=== PATIENT | female | born 1985 | race Caucasian/White ===

== ENCOUNTER → 2019-04-06 | Outpatient (CLI) | payer OTHER ==
[~2019-04-06] MED LIST: DOCU10CA PO; FERR325T3 PO; IBUP80TA PO; PERCOCET PO; VITAPRTA PO
--- NOTE | 2019-04-06 10:58 | REP ---
LUMBAR SPINE, FIVE VIEWS: HISTORY: Fall. There is no acute fracture or subluxation. The intervertebral discs are normal in height. The facet joints are normal in appearance. There is loss of the normal lordotic curve. There is scoliosis convex to the left. IMPRESSION: There is no acute fracture or dislocation. Electronically Signed by Westley Toscano MD 04/06/2019 11:01 A
[2019-04-06 14:31] LABS: BASO # 0.1 10^3/uL (0.0-0.2); EOS # 0.2 10^3/uL (0.0-0.50); EOS % 3.4 % (0.0-3.0); HEMATOCRIT 42.7 % (36.0-47.0); HEMOGLOBIN 14.1 g/dl (12.0-15.5); LYMPH # 1.9 10^3/uL (1.5-4.5); LYMPH % 31.5 % (24.0-44.0); MEAN CORPUSCULAR VOLUME 93.8 fl (80.0-96.0); MONO # 0.5 10^3/uL (0.0-0.8); MONO % 7.7 % (0.0-5.0); NEUTROPHILS # 3.3 10^3/uL (1.8-7.7); NEUTROPHILS % 56.2 % (36.0-66.0); PLATELET COUNT, AUTOMATED 375 10^3/uL (150-450); RED BLOOD COUNT 4.55 10^6/uL (4.00-5.40); WHITE BLOOD COUNT 5.9 10^3/uL (4.0-10.0)
[2019-04-06 14:34] LABS: AMORPHOUS SEDIMENT SMALL (NEGATIVE); APPEARANCE, URINE HAZY (CLEAR); BACTERIA, URINE AUTO 1+ (NEGATIVE); BILIRUBIN, URINE AUTO NEGATIVE (NEGATIVE); BLOOD, URINE BLOOD 1+ (NEGATIVE); COLOR, URINE YELLOW (YELLOW); GLUCOSE, URINE (UA) AUTO NEGATIVE (NEGATIVE); KETONE, URINE AUTO NEGATIVE (NEGATIVE); LEUKOCYTE ESTERASE, URINE AUTO 1+ (NEGATIVE); MUCUS, URINE SMALL (NEGATIVE); NITRITE, URINE AUTO POSITIVE (NEGATIVE); PROTEIN, URINE AUTO NEGATIVE (NEGATIVE); RBC, URINE AUTO 6 /HPF (0-3); SQUAMOUS EPITHELIAL CELL UR AU 6 /HPF (0-6); UROBILINOGEN, URINE AUTO 0.2 mg/dL (0.0-2.0); WBC, URINE AUTO 30 /HPF (0-3)
[2019-04-06 14:43] LABS: PARTIAL THROMBOPLASTIN TIME 28.9 SECONDS (25.0-38.4); PROTHROMBIN TIME 12.9 SECONDS (11.8-14.0)
[2019-04-06 14:47] LABS: BLOOD UREA NITROGEN 12 MG/DL (7-18); CALCIUM LEVEL 10.2 MG/DL (8.5-10.1); CARBON DIOXIDE LEVEL 26 MEQ/L (21-32); CHLORIDE LEVEL 109 MEQ/L (98-107); CREATININE FOR GFR 0.73 MG/DL (0.55-1.30); GLOMERULAR FILTRATION RATE > 60.0 (>60); GLUCOSE, FASTING 83 MG/DL (70-100); POTASSIUM SERUM 4.3 MEQ/L (3.5-5.1); SODIUM LEVEL 142 MEQ/L (136-145)
[2019-04-06 14:48] LABS: ALBUMIN 3.9 GM/DL (3.2-5.2); ALT/SGPT 19 U/L (12-78); BILIRUBIN,TOTAL 0.6 MG/DL (0.2-1.0); CHOLESTEROL LEVEL 227 MG/DL (<200); CHOLESTEROL RISK RATIO 4.127 (<5); FOLATE 18.7 NG/ML (>5.4); FREE T4 1.01 NG/DL (0.76-1.46); HDL CHOLESTEROL 55 MG/DL (>40); LDL CHOLESTEROL 145 MG/DL (<100); NON-HDL-C 172 MG/DL; TOTAL 25(OH) VITAMIN D 34.6 NG/ML (30.0-100.0); TOTAL PROTEIN 7.5 GM/DL (6.4-8.2); TRIGLYCERIDES LEVEL 136 MG/DL (<150); VITAMIN B12 LEVEL 747 PG/ML (247-911)
--- NOTE | 2019-04-07 02:28 | REP ---
Clinical: Trauma. Technique: Frontal view of the chest with multiple (four) views of the left hemithorax. Findings: Frontal view of the chest demonstrates no acute cardiopulmonary process. Multiple views of the left hemithorax demonstrates no obvious acute rib fracture or pathology. Impression: Normal left rib series Electronically Signed by Jose Lira MD 04/07/2019 02:19 A
--- NOTE | 2019-04-07 02:36 | REP ---
Clinical: Trauma . Technique: AP, lateral, bilateral oblique views of the left elbow. Findings: No acute fracture or dislocation is appreciated. Joint spaces and surrounding soft tissues appear normal. Lateral view demonstrates normal positioning to the anterior and posterior fat pads without evidence for effusion/hemarthrosis. No subcutaneous emphysema or foreign body identified. Impression: Normal left elbow radiographs. Electronically Signed by Jose Lira MD 04/07/2019 02:27 A
--- NOTE | 2019-04-07 02:56 | REP ---
Clinical: Trauma. Fall. Technique: Five views of the bilateral sacroiliac joints. Findings: Bilateral sacroiliac joints are symmetric and age appropriate. No significant degenerative changes or subluxation noted. Surrounding osseous structures appear intact. Impression: Symmetric age-appropriate sacroiliac joints. Electronically Signed by Jose Lira MD 04/07/2019 02:47 A
--- NOTE | 2019-04-07 03:00 | REP ---
Clinical: Trauma. Technique: AP, lateral left humerus Findings: The osseous structures and joint spaces are intact and normal. There is no evidence for acute fracture or dislocation. Surrounding soft tissues are unremarkable. No subcutaneous emphysema or radiodense foreign body. Impression: Normal left humerus . No acute fracture or dislocation. Electronically Signed by Jose Lira MD 04/07/2019 02:52 A
== END ==
LOC: M WUC 09:09
PROVIDERS: ATTEND Family Medicine
DX: J30.9 Allergic rhinitis, unspecified (principal); E55.9 Vitamin D deficiency, unspecified; N30.10 Interstitial cystitis (chronic) without hematuria; K76.9 Liver disease, unspecified; W19.XXXA Unspecified fall, initial encounter; X58.XXXA Exposure to other specified factors, initial encounter; Y92.89 Other specified places as the place of occurrence of the external cause

== ENCOUNTER 2021-08-01 21:15 | Emergency (ER) | payer OTHER ==
[~2021-08-01] VITALS: Ht 167.6 cm; Wt 62.3 kg
--- OUTSIDE RECORDS SUMMARY | 2021-08-01 21:21 | CCD | Continuity of Care Document ---
Author Author Megan HDEZ M.D. Organization Unknown Address [address] [place] [address] Phone [phone] Care Team Providers Care Dope Pourer Name Role Phone Martin Hdez M.D. AUTM [phone] [facility] [phone] [facility] Problems Active Problems Provider Date Vitamin D deficiency Martin Hdez MD Onset: 07/10/2016 Allergic rhinitis Martin Hdez MD Onset: 07/10/2016 Social History Type Date Description Comments Sex Unknown Tobacco Use Start: Unknown Never Smoked Cigarettes Tobacco Use Start: Unknown Never Smoked Cigars Tobacco Use Start: Unknown Never Smoked A Pipe Tobacco Use Start: Unknown Never Used Smokeless Tobacco ETOH Use Occasionally consumes alcohol Tobacco Use Start: Unknown Patient has never smoked Recreational Drug Use Denies Drug Use Allergies and adverse reactions Active Allergies Criticality Reaction | Severity Comments Date Seasonal Unable to assess criticality 07/10/2016 NKFA Unable to assess criticality 07/10/2016 Bactrim Unable to assess criticality 07/10/2016 Latex Unable to assess criticality 04/05/2019 Hemp Unable to assess criticality 05/10/2019 Medications Active Medications SIG Qnty Indications Ordering Provide r Date Flonase Allergy Relief 50mcg/Act Suspension 2 spray intranasal once a day 54.600ml J30.9 Martin holman MD 07/24/2021 Rizatriptan Benzoate 10mg Tablets Dispers 1 tablet by mouth once daily as needed and may repeat one afte 2 hrs if no improvment. Brewster: 3-4/wk 36tabs G43.009 Martin Hdez MD 07/24 Topiramate 50mg Tablets 1tab by mouth every day 90tabs G43.009 Martin Hdez MD 07/24/2021 Multivitamin Adult Tablets 1 by mouth every day 90tabs Martin Hdez MD 08/15/2020 Fexofenadine HCL 180mg Tablets Take 1 tablet by mouth daily 90tabs J30.9 Martin Hdez MD 2019 Olopatadine HCL 0.1% Solution 1 drop both eyes twice a day 15ml J30.9 Martin Hdez MD 04/08/2019 Tri-Sprintec 0.18/0. 215/0.25 mg-35 mcg Tablets 1 tab by mouth every day 168tabs Martin Hdez MD Immunizations Description No Information Available Vital Signs Date Vital Result Comment 07/24/2021 10:14am BP Systolic 112 mmHg BP Diastolic 78 mmHg Heart Rate 66 /min Body Temperature 97.2 F Respiratory Rate 16 /min O2 % BldC Oximetry 98 % Weight 137.38 lb Weight 62.313 kg Height 66 inches 5'6" BMI (Body Mass Index) 22.2 kg/m2 BSA (Body Surface Area) 1.70 m2 08/15/2020 9:59am BP Systolic 120 mmHg BP Diastolic 60 mmHg Heart Rate 84 /min Body Temperature 97.2 F Respiratory Rate 18 /min O2 % BldC Oximetry 99 % Weight 131.00 lb Weight 59.422 kg Height 66 inches 5'6" BMI (Body Mass Index) 21.1 kg/m2 BSA (Body Surface Area) 1.67 m2 Results Test Acquired Date Facility Test Result H/L Range Note Laboratory test finding 07/24/2021 [facility] Sedimentation Rate <pending> CRP (High Sensitivity) <pending> Laboratory test finding [facility] TSH Highly Sensitive <pending> T4 - Free <pending> Laboratory test finding 07/24/2021 [facility] Vitamin B12 Serum <pending> Xray 07/24/2021 [facility] [address] [id number] [phone] MRI Brain W/O Contrast <pending> Procedures Date Code Description Status 07/24/2021 67887 Preventive Visit Est 18-39 Yrs C ompleted Medical Devices Description No Information Available Encounters Type Date Location Provider Dx Diagnosis Office Visit 07/24/2021 10:00a [facility] Martin Hdez MD G4 3.009 Migraine w/o aura, not intractable, w/o status migrainosus J30.9 Allergic rhinitis, unspecifi ed Z00.00 Encntr for general adult med ical exam w/o abnormal findings Assessments Date Code Description Provider 07/24/2021 G43.009 Migraine without aur a, not intractable, without status migrainosus Martin Hdez MD 07/24/2021 J30.9 Allergic rhinitis, unspecified H itzel Hdez MD 07/24/2021 Z00.00 Encounter for genera l adult medical examination without abnormal findings Martin Hdez MD Plan of Treatment Future Appointment(s):* 09/04/2021 10:20 am - Martin Hdez MD at [facility] 07/24/2021 - Martin Hdez MD* G43.009 Migraine without aura, not intractable, without status migrainosus* New Medication:* Rizatriptan Benzoate 10 mg - 1 tablet by mouth once daily as needed and may repeat one afte 2 hrs if no improvment. Brewster: 3-4/wk * Topiramate 50 mg - 1tab by mouth every day * Follow up:* 1 month * J30.9 Allergic rhinitis, unspecified* New Medication:* Flonase Allergy Relief 50 mcg/Act - 2 spray intranasal once a day * Z00.00 Encounter for general adult medical examination without abnormal findings Functional Status Description No Information Available Mental Status Description No Information Available Referrals Description No Information Available
--- OUTSIDE RECORDS SUMMARY | 2021-08-01 21:21 | CCD | Continuity of Care Document ---
Author Author Megan HDEZ M.D. Organization Unknown Address [address] [place] [address] Phone [phone] Care Team Providers Care Registry Np Name Role Phone Martin Hdez M.D. AUTM [phone] [facility] AUTM [phone] [facility] AUTM Problems Active Problems Provider Date Vitamin [...] Date Facility Test Result H/L Range Note CBC W/Automated Diff 07/24/2021 [facility] CBC W/Automated Diff (SEE NOTE) 1, 2 WBC 5.2 10^3/uL 4.2 - 11.0 RBC 4.46 10^6/uL 4.20 - 5.40 Hemoglobin 13.4 g/dL 12.0 - 16.0 Hematocrit 40.1 % 37.0 - 47.0 MCV 89.9 fL 81.0 - 101 MCH 30.0 pg 27.0 - 34.0 MCHC 33.4 g/dL 31.0 - 36.0 RDW 12.8 % 11.5 - 14.5 Platelets 365 10^3/uL 150 - 450 MPV 9.4 fL 7.4 - 10.4 Neut 55.8 % 37.0 - 80.0 Lymph 32.6 % 25.0 - 40.0 [place] 8.3 % High 3.0 - 8.0 Eos 2.1 % 0.0 - 7.0 Baso 1.0 % 0.0 - 2.5 %Ig 0.2 % High 0.0 - 0.0 %NRBC 0.0 % 0.0 - 0.0 #Neut 2.91 10^3/uL 2.00 - 6.90 #Lymph 1.70 10^3/uL 0.60 - 3.40 #[place] 0.43 10^3/uL 0.00 - 0.90 #Eos 0.11 10^3/uL 0.00 - 0.70 #Baso 0.05 10^3/uL 0.00 - 0.20 #Ig 0.01 10^3/uL 0.00 - 0.10 #NRBC 0.00 10^3/uL 0.00 - 0.00 Manual Diff NOT INDICATED RBC Morph NOT INDICATED Comprehensive Metabolic Panel 07/24/2021 [facility] Comprehensive Metabo (SEE NOTE) 3 Sodium 139 mEq/L 134 - 153 Potassium 4.7 mEq/L 3.6 - 5.0 Chloride 104 mEq/L 98 - 107 Co2 26 mEq/L 22 - 30 Glucose 84 mg/dL 70 - 99 BUN 10 mg/dL 7 - 21 Creatinine 0.6 mg/dL Low 0.7 - 1.5 BUN/Creat 17 8 - 27 Total Protein 7.5 g/dL 6.3 - 8.2 Albumin 4.8 g/dL 3.9 - 5.0 Globulin 2.7 GM/DL 2.4 - 3.2 A/G Ratio 1.8 0.8 - 2.0 Calcium 10.6 mg/dL High 8.4 - 10.2 Total Bili 0.9 mg/dL 0.2 - 1.3 Alkaline Phos 45 U/L 38 - 126 Sgot/Ast 14 U/L 5 - 40 SGPT/Alt 12 U/L 7 - 56 Anion Gap 9.0 mmol/L 8.0 - 16.0 Age 36 yrs Non-Aa GFR >60 mL/min Afr Amer GFR >60 mL/min 4 Sedimentation Rate 07/24/2021 [facility] Sed Rate 7 mm/hr 0 - 20 Sed Rate Reenter 7 Laboratory test finding 07/24/2021 [facility] CRP (High Sensitivity) 3.30 mg/L High 1.00 - 3.00 5 Lyme Disease Antibodies 07/24/2021 [facility] Lyme IgG/IgM Ab <0.91 ISR 0.00-0.90 6 Lyme Disease Ab, Quant,IgM <0.80 index 0.00-0.79 7 Laboratory test finding 07/24/2021 [facility] TSH Highly Sensitive 2.17 uIU/mL 0.47 - 5.01 T4 - Free 1.14 ng/dL 0.93 - 1.70 Laboratory test finding 07/24/2021 [facility] Vitamin B12 Serum 694 pg/mL 232 - 1245 Cve Panel 07/24/2021 [facility] Cve Panel (SEE NOTE) 8 Cholesterol 230 mg/dL High 131 - 200 Triglycerides 106 mg/dL 35 - 160 HDL 66 mg/dL 29 - 86 LDL 145 mg/dL 65 - 175 Risk Factor 3.5 3.2 - 4.4 LDL/HDL 2.20 1.47 - 3.22 9 Xray 07/24/2021 [facility] [address] [place], [place] [id number] [phone] MRI Brain W/O Contrast <pending> 1 Is patient fasting? N 2 COMPLETE BLOOD COUNT 3 COMPREHENSIVE METABOLIC PANE L 4 Male GFR Interprentation 20-49 yrs >60 mL/min Normal 50-59 yrs >56 mL/min Normal 60-69 yrs >49 mL/min Normal 70-79yrs >42 mL/min Normal 80 and above >35 mL/min Normal Female GFR Interpretation 20-39 yrs >60 mL/min Normal 40-49 yrs >58 mL/min Normal 50-59 yrs >51 mL/min Normal 60-69 yrs >45 mL/min Normal 70-79 yrs >39 mL/min Normal 80 and above >32 mL/min Normal 5 CDC/AHS HS-CRP CUT-OFF: RELATIVE RISK: <1.0 mg/L Low 1.0 - 3.0 mg/L A verage >3.0 mg/L High Optimally, the average of HS-CRP results repeated two weeks apart should be used for risk assessment. 6 Negative <0.91 Equivocal 0.91 - 1.09 Positive >1.09 7 Negative <0.80 Equivocal 0.80 - 1.19 Positive >1.19 IgM levels may peak at 3-6 weeks post infection, then gradually decline. 8 LIPID PANEL 9 CVE RISK CHOL/HDL LDL/HDL MEN: 1/2 AVERAGE 3.43 1.00 AVERAGE 4.97 3.55 2X AVERAGE 9.55 6.25 3X AVERAGE 23.99 7.99 WOMEN: 1/2 AVERAGE 3.27 1.47 AVERAGE 4.44 3.22 2X AVERAGE 7.05 5.03 3X AVERAGE 11.04 6.14 Procedures Date Code Description Status 07/24/2021 69178 Preventive Visit Est 18-39 Yrs C ompleted Medical Devices Description No Information Available Encounters Type Date Location Provider Dx Diagnosis Office Visit 07/24/2021 10:00a [facility] Martin Hdez MD G4 3.009 Migraine w/o [...] 10:20 am - Martin Hdez MD at [facility] 07/24/2021 - Martin Hdez MD* G43.009 Migraine without aura, not intractable, without status migrainosus* New Medication:* Rizatriptan Benzoate 10 mg - 1 tablet by mouth once daily as needed and may repeat one afte 2 hrs if no improvment. Brewster: 3-4/wk * Topiramate 50 mg - 1tab by mouth every day * Comments:* Prescribed Rizatriptan Benzoate 10 mg 1 tablet by mouth once daily as needed. * Follow up:* 1 month * J30.9 Allergic rhinitis, unspecified* New Medication:* Flonase Allergy Relief 50 mcg/Act - 2 spray intranasal once a day * Comments:* Prescribed Flonase 2 sprays once daily. * Z00.00 Encounter for general adult medical examination without abnormal findings* Comments:* Examination performed today was normal. Routine labs were ordered today. Functional Status Description No Information Available Mental Status Description No Information Available Referrals Description No Information Available
--- OUTSIDE RECORDS SUMMARY | 2021-08-01 21:21 | CCD ---
Author Author [facility] Organization [facility] Address Unknown Phone Unavailable Care Team Providers Care Stage Rigger Name Role Phone MARIBELL KLINE MD Unavailable Unavailable MARIBELL KLINE MD Unavailable Unavailable MARIBELL KLINE MD Unavailable Unavailable MARIBELL KLINE MD Unavailable Unavailable MARIBELL KLINE MD Unavailable Unavailable MARIBELL KLINE MD Unavailable Unavailable MARIBELL KLINE MD Unavailable Unavailable MARIBELL KLINE MD Unavailable Unavailable MARIBELL KLINE MD Unavailable Unavailable MARIBELL KLINE MD Unavailable Unavailable MARIBELL KLINE MD Unavailable Unavailable MARIBELL KLINE MD Unavailable Unavailable MARIBELL KLINE MD Unavailable Unavailable MARIBELL KLINE MD Unavailable Unavailable MARIBELL KLINE MD Unavailable Unavailable MARIBELL KLINE MD Unavailable Unavailable MARIBELL KLINE MD Unavailable Unavailable MARIBELL KLINE MD Unavailable Unavailable MARIBELL KLINE MD Unavailable Unavailable MARIBELL KLINE MD Unavailable Unavailable MARIBELL KLINE MD Unavailable Unavailable MARIBELL KLINE MD Unavailable Unavailable MARIBELL KLINE MD Unavailable Unavailable MARIBELL KLINE MD Unavailable Unavailable MARIBELL KLINE MD Unavailable Unavailable MARIBELL KLINE MD Unavailable Unavailable MARIBELL KLINE MD Unavailable Unavailable MARIBELL KLINE MD Unavailable Unavailable MARIBELL KLINE MD Unavailable Unavailable MARIBELL KLINE MD Unavailable Unavailable MARIBELL KLINE MD Unavailable Unavailable MARIBELL KLINE MD Unavailable Unavailable MARIBELL KLINE MD Unavailable Unavailable MARIBELL KLINE MD Unavailable Unavailable MARIBELL KLINE MD Unavailable Unavailable MARIBELL KLINE MD Unavailable Unavailable MARIBELL KLINE MD Unavailable Unavailable MARIBELL KLINE MD Unavailable Unavailable MARIBELL KLINE MD Unavailable Unavailable KLINE, MARIBELL MD Unavailable Unavailable KLINE, MARIBELL MD Unavailable Unavailable KLINE, MARIBELL MD Unavailable Unavailable KLINE, MARIBELL MD Unavailable Unavailable KLINE, MARIBELL MD Unavailable Unavailable KLINE, MARIBELL MD Unavailable Unavailable KLINE, MARIBELL MD Unavailable Unavailable KLINE, MARIBELL MD Unavailable Unavailable KLINE, MARIBELL MD Unavailable Unavailable KLINE, MARIBELL MD Unavailable Unavailable KLINE, MARIBELL MD Unavailable Unavailable KLINE, MARIBELL MD Unavailable Unavailable KLINE, MARIBELL MD Unavailable Unavailable KLINE, MARIBELL MD Unavailable Unavailable KLINE, MARIBELL MD Unavailable Unavailable KLINE, MARIBELL MD Unavailable Unavailable KLINE, MARIBELL MD Unavailable Unavailable KLINE, MARIBELL MD Unavailable Unavailable KLINE, MARIBELL MD Unavailable Unavailable KLINE, MARIBELL MD Unavailable Unavailable KLINE, MARIBELL MD Unavailable Unavailable KLINE, MARIBELL MD Unavailable Unavailable KLINE, MARIBELL MD Unavailable Unavailable KLINE, MARIBELL MD Unavailable Unavailable KLINE, MARIBELL MD Unavailable Unavailable KLINE, MARIBELL MD Unavailable Unavailable KLINE, MARIBELL MD Unavailable Unavailable KLINE, MARIBELL MD Unavailable Unavailable KLINE, MARIBELL MD Unavailable Unavailable KLINE, MARIBELL MD Unavailable Unavailable KLINE, MARIBELL MD Unavailable Unavailable KLINE, MARIBELL MD Unavailable Unavailable KLINE, MARIBELL MD Unavailable Unavailable KLINE, MARIBELL MD Unavailable Unavailable KLINE, MARIBELL MD Unavailable Unavailable KLINE, MARIBELL MD Unavailable Unavailable KLINE, MARIBELL MD Unavailable Unavailable KLINE, MARIBELL MD Unavailable Unavailable KLINE, MARIBELL MD Unavailable Unavailable KLINE, MARIBELL MD Unavailable Unavailable KLINE, MARIBELL MD Unavailable Unavailable KLINE, MARIBELL MD Unavailable Unavailable KLINE, MARIBELL MD Unavailable Unavailable KLINE, MARIBELL MD Unavailable Unavailable KLINE, MARIBELL MD Unavailable Unavailable KLINE, MAIRBELL MD Unavailable Unavailable KLINE, MARIBELL MD Unavailable Unavailable KLINE, MARIBELL MD Unavailable Unavailable KLINE, MARIBELL MD Unavailable Unavailable KLINE, MARIBELL MD Unavailable Unavailable KLINE, MARIBELL MD Unavailable Unavailable KLINE, MARIBELL MD Unavailable Unavailable KLINE, MARIBELL MD Unavailable Unavailable KLINE, MARIBELL MD Unavailable Unavailable KLINE, MARIBELL MD Unavailable Unavailable KLINE, MARIBELL MD Unavailable Unavailable KLINE, MARIBELL MD Unavailable Unavailable KLINE, MARIBELL MD Unavailable Unavailable KLINE, MARIBELL MD Unavailable Unavailable KLINE, MARIBELL MD Unavailable Unavailable KLINE, MARIBELL MD Unavailable Unavailable KLINE, MARIBELL MD Unavailable Unavailable KLINE, MARIBELL MD Unavailable Unavailable KLINE, MARIBELL MD Unavailable Unavailable KLINEMARIBELL MD Unavailable Unavailable KLINEMARIBELL MD Unavailable Unavailable KLINEMARIBELL MD Unavailable Unavailable KLINEMARIBELL MD Unavailable Unavailable KLINEMARIBELL MD Unavailable Unavailable KLINEMARIBELL MD Unavailable Unavailable KLINEMARIBELL MD Unavailable Unavailable KLINEMARIBELL MD Unavailable Unavailable KLINEMARIBELL MD Unavailable Unavailable KLINEMARIBELL MD Unavailable Unavailable KLINEMARIBELL MD Unavailable Unavailable KLINEMARIBELL MD Unavailable Unavailable KLINE MARIBELL MD Unavailable Unavailable KLINE MARIBELL MD Unavailable Unavailable KLINE, MARIBELL MD Unavailable Unavailable KLINE, MARIBELL MD Unavailable Unavailable LKINEMARIBELL MD Unavailable Unavailable KLINEMARIBELL MD Unavailable Unavailable KLINEMARIBELL MD Unavailable Unavailable KLINEMARIBELL MD Unavailable Unavailable KLINEMARIBELL MD Unavailable Unavailable KLINEMARIBELL MD Unavailable Unavailable KLINEMARIBELL MD Unavailable Unavailable KLINEMARIBELL BARRETT MD Unavailable Unavailable KLINEMARIBELL BARRETT MD Unavailable Unavailable KLINEMARIBELL BARRETT MD Unavailable Unavailable KLINEMARIBELL BARRETT MD Unavailable Unavailable KLINEMARIBELL MD Unavailable Unavailable KLINEMARIBELL MD Unavailable Unavailable KLINEMARIBELL MD Unavailable Unavailable KLINEMARIBELL MD Unavailable Unavailable KLINEMARIBELL BARRETT MD Unavailable Unavailable KLINEMARIBELL BARRETT MD Unavailable Unavailable KLINEMARIBELL BARRETT MD Unavailable Unavailable KLINEMARIBELL BARRETT MD Unavailable Unavailable KLINEMARIBELL BARRETT MD Unavailable Unavailable KLINEMARIBELL BARRETT MD Unavailable Unavailable KLINEMARIBELL BARRETT MD Unavailable Unavailable KLINEMARIBELL BARRETT MD Unavailable Unavailable ANTECOL, Peyton RIDLEY MD Unavailable Unavailable ANTECOL, Peyton RIDLEY MD Unavailable Unavailable ANTECOL, Peyton RIDLEY MD Unavailable Unavailable ANTECOL, Peyton RIDLEY MD Unavailable Unavailable ANTECOL, Peyton RIDLEY MD Unavailable Unavailable ANTECOL, Peyton RIDLEY MD Unavailable Unavailable ANTECOL, Peyton RIDLEY MD Unavailable Unavailable ANTECOL, Peyton RIDLEY MD Unavailable Unavailable ANTECOL, Peyton RIDLEY MD Unavailable Unavailable ANTECOL, Peyton RIDLEY MD Unavailable Unavailable ANTECOL, Peyton RIDLEY MD Unavailable Unavailable ANTECOL, Peyton RIDLEY MD Unavailable Unavailable ANTECOL, Peyton RIDLEY MD Unavailable Unavailable ANTECOL, Peyton RIDLEY MD Unavailable Unavailable ANTECOL, Peyton RIDLEY MD Unavailable Unavailable ANTECOL, Peyton RIDLEY MD Unavailable Unavailable ANTECOL, Peyton RIDLEY MD Unavailable Unavailable ANTECOL, Peyton RIDLEY MD Unavailable Unavailable ANTECOL, Peyton RIDLEY MD Unavailable Unavailable ANTECOL, Peyton RIDLEY MD Unavailable Unavailable ANTECOL, Peyton RIDLEY MD Unavailable Unavailable ANTECOL, Peyton RIDLEY MD Unavailable Unavailable ANTECOL, Peyton RIDLEY MD Unavailable Unavailable ANTECOL, Peyton RIDLEY MD Unavailable Unavailable ANTECOL, Peyton RIDLEY MD Unavailable Unavailable ANTECOL, Peyton RIDLEY MD Unavailable Unavailable ANTECOL, Peyton RIDLEY MD Unavailable Unavailable ANTECOL, Peyton RIDLEY MD Unavailable Unavailable ANTECOL, Peyton RIDLEY MD Unavailable Unavailable ANTECOL, Peyton RIDLEY MD Unavailable Unavailable ANTECOL, Peyton RIDLEY MD Unavailable Unavailable ANTECOL, Peyton RIDLEY MD Unavailable Unavailable ANTECOL, Peyton RIDLEY MD Unavailable Unavailable ANTECOL, Peyton RIDLEY MD Unavailable Unavailable ANTECOL, Peyton RIDLEY MD Unavailable Unavailable ANTECOL, Peyton RIDLEY MD Unavailable Unavailable ANTECOL, Peyton RIDLEY MD Unavailable Unavailable ANTECOL, Peyton RIDLEY MD Unavailable Unavailable ANTECOL, Peyton RIDLEY MD Unavailable Unavailable ANTECOL, Peyton RIDLEY MD Unavailable Unavailable ANTECOL, Peyton RIDLEY MD Unavailable Unavailable ANTECOL, Peyton RIDLEY MD Unavailable Unavailable ANTECOL, Peyton RIDLEY MD Unavailable Unavailable ANTECOL, Peyton RIDLEY MD Unavailable Unavailable ANTECOL, Peyton RIDLEY MD Unavailable Unavailable ANTECOL, Peyton RIDLEY MD Unavailable Unavailable ANTECOL, Peyton RIDLEY MD Unavailable Unavailable ANTECOL, Peyton RIDLEY MD Unavailable Unavailable ANTECOL, Peyton RIDLEY MD Unavailable Unavailable ANTECOL, Peyton RIDLEY MD Unavailable Unavailable ANTECOL, Peyton RIDLEY MD Unavailable Unavailable ANTECOL, Peyton RIDLEY MD Unavailable Unavailable ANTECOL, Peyton RIDLEY MD Unavailable Unavailable ANTECOL, Peyton RIDLEY MD Unavailable Unavailable Re-disclosure Warning The records that you are about to access may contain information from federally-assisted alcohol or drug abuse programs. If such information is present, then the following federally mandated warning applies: This information has been disclosed to you from records protected by federal confidentiality rules (42 CFR part 2). The federal rules prohibit you from making any further disclosure of this information unless further disclosure is expressly permitted by the written consent of the person to whom it pertains or as otherwise permitted by 42 CFR part 2. A general authorization for the release of medical or other information is NOT sufficient for this purpose. The Federal rules restrict any use of the information to criminally investigate or prosecute any alcohol or drug abuse patient.The records that you are about to access may contain highly sensitive health information, the redisclosure of which is protected by Article 27-F of the [facility] Public Health law. If you continue you may have access to information: Regarding HIV / AIDS; Provided by facilities licensed or operated by the [facility] Office of Mental Health; or Provided by the [facility] Office for People With Developmental Disabilities. If such information is present, then the following [place] State mandated warning applies: This information has been disclosed to you from confidential records which are protected by state law. State law prohibits you from making any further disclosure of this information without the specific written consent of the person to whom it pertains, or as otherwise permitted by law. Any unauthorized further disclosure in violation of state law may result in a fine or [place] health care facility sentence or both. A general authorization for the release of medical or other information is NOT sufficient authorization for further disc losure. Allergies and Adverse Reactions Type Description Substance Reaction Status Data Source(s ) Propensity to adverse reactions seasonal seasonal [facility] Propensity to adverse [facility] History Family Member Name Family Member Gender Family Member Status Date o f Status Description Data Source(s) Unknown Unknown Problem [facility] ([facility]) Unknown Unknown Problem [facility] ([facility]) Encounters Encounter Providers Location Date Indications Data Source(s ) Outpatient Attender: MARIBELL KLINE MDConsultant: MARIBELL Singh MD 07/24/2021 11:08:27 AM [facility] Outpatient Attender: MARIBELL KLINE MDConsultant: MARIBELL Singh MD 07/24/2021 09:56:00 AM EST - 07/24/2021 09:56:00 AM [facility] Outpatient Attender: MARIBELL KLINE MD Family Practice 07/24/2021 0 9:00:00 AM EST [facility] ([facility]) Outpatient Attender: KEYANA MACIEL MD Main Office 10/09/2020 11:30:00 AM EST [facility] ([facility]) Outpatient Attender: MAIRBELL KLINE MDConsultant: MARIBELL Singh MD 09/13/2020 10:39:00 AM EST - 09/13/2020 10:39:00 AM [facility] Outpatient Attender: MARIBELL KLINE MDConsultant: MARIBELL Singh MD 09/07/2020 10:44:00 AM EST - 09/07/2020 11:44:00 AM [facility] Patient discharged. Outpatient Attender: MARIBELL KLINE MDConsultant: MARIBELL Singh MD 08/15/2020 09:57:00 AM EST - 08/15/2020 09:57:00 AM EST [facility] Outpatient Attender: MARIBELL KLINE MD Family Practice 08/15/2020 0 9:20:00 AM EST [facility] ([facility]) Immunizations Vaccine Date Status Description Data Source(s) COVID-19 VACCINE Pfizer 07/07/2021 12:00:00 AM EDT completed [facility] Vaccine Series Complete: YESThis Data wa s Submitted to [facility] Via Identiv. COVID-19 VACC, MRNA(PFIZER)/PF 07/07/2021 12:00:00 AM EDT completed [facility] DIPH,PERTUSS(ACELL),TET VAC/PF 06/23/2021 12:00:00 AM EDT completed [facility] COVID-19 VACCINE Pfizer 12/04/2020 12:00:00 AM EDT completed [facility] Vaccine Series Complete: NOThis Data was Submitted to [facility] Via Identiv. Medications Medication Brand Name Start Date Product Form Dose Route Admi nistrative Instructions Pharmacy Instructions Status Indications Reaction Description Data Source(s) Flonase Allergy Relief Flonase Allergy Relief 07/24/2021 12:00:00 AM EST NASAL active [facility] ([facility]) topiramate 50 MG Oral Tablet Topiramate 07/24/2021 12:00:00 AM EST ORAL active [facility] ([facility]) rizatriptan 10 MG Disintegrating Oral Tablet Rizatriptan Willem zoate 07/24/2021 12:00:00 AM EST ORAL active M [facility] ([facility]) 60 mcg (15 mcg x 4)/0.5 mL 06/23/2021 12:00:00 AM EDT syring e 0 INJECT DIRECTED INJECT DIRECTED SOLD: 06/23/2021 [facility] Tri-Sprintec Tri-Sprintec 10/08/2020 12:00:00 AM EST ORAL active [facility] ([facility]) Ascorbic Acid 60 MG / Beta Carotene 5000 UNT / Copper Sulfate 40 MG / dl-alpha tocopheryl acetate 30 UNT / Sodium Selenite 0.04 MG / Zinc Oxide 40 MG Oral Tablet Multivitamin Adult (Minerals) 08/15/2020 12:00:00 AM EST ORAL active [facility] ([facility]) Multivitamin Adult 08/15/2020 12:00:00 AM EST ORAL active [facility] ([facility]) Insurance Providers Payer name Policy type / Coverage type Policy ID Covered republican ID Covered republican's relationship to pearce Policy Pearce Plan Information [facility] [id number] SP [id number] [facility] [place] [id number] 18 [id number] [employer] AT [facility] [id number] 18 [id number] [employer] AT [facility] [place] [id number] 18 [id number] [facility] O [id number] S 0001 [id number] [facility] Commercial [id number] Self [id number] [facility] [id number] Self [employer] AT [facility] [id number] 18 [id number] Problems, Conditions, and Diagnoses Code Display Name Description Problem Type Effective Dates Data Source(s) J309 Allergic rhinitis, unspecified Allergic rhinitis, unsp ecified Diagnosis 07/24/2021 09:56:00 AM [facility] [id number] Migraine without aura, not intractable, without status migrainosus Migraine without aura, not intractable, without status migrainosus Diagnosis 07/24/2021 09:56:00 AM [facility] Z0001 Encounter for general adult medical exam ination with abnormal findings Encounter for general adult medical examination with abnormal findings Diagnosis 07/24/2021 09:56:00 AM [facility] K829 Disease of gallbladder, unspecified Disease of g allbladder, unspecified Diagnosis 09/13/2020 10:39:00 AM [facility] K7689 Other specified diseases of liver Other specifie d diseases of liver Diagnosis 09/13/2020 10:39:00 AM [facility] E559 Vitamin D deficiency, unspecified Vitamin D defi ciency, unspecified Diagnosis 09/13/2020 10:39:00 AM [facility] K769 Liver disease, unspecified Liver disease, unspecified Diagnosis 09/07/2020 10:44:00 AM [facility] R55 Syncope and collapse Syncope and collapse Diagnosis 08/15/2020 09:57:00 AM EST [facility] Z0000 Encounter for general adult medical exam ination without abnormal findings Encounter for general adult medical examination without abnormal findings Diagnosis 08/15/2020 09:57:00 AM EST [facility] R07.89 Chest pain Chest pain Problem 10/09/2020 12:00:00 AM ES T [facility] ([facility]) R00.2 Palpitations Palpitations Problem 10/09/2020 12:00:00 A M EST [facility] ([facility]) R94.31 Electrocardiogram abnormal Electrocardiogram abnormal Problem 10/09/2020 12:00:00 AM EST [facility] ([facility]) 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 Conduction disorder o f the heart Problem 10/09/2020 12:00:00 AM EST [facility] ([facility]) R55 Syncope and collapse Syncope and collapse Problem 10/09/2020 12:00:00 AM EST [facility] ([facility]) Surgeries/Procedures Procedure Description Date Indications Data Source(s) PERIODIC PREVENTIVE MED EST PATIENT 18-39 YRS 07/24/20 21 12:00:00 AM EST [facility] ([facility]) XTRNL PT ACTIVATED ECG RECORD MONITOR 30 DAYS 10/31/19 21 12:00:00 AM EST [facility] ([facility]) XTRNL PT ACTIVTD ECG DWNLD 30 DAYS PHYS R&I 10/30/2020 12:00:00 AM EST [facility] ([facility]) ECHO TTHRC R-T 2D W/WOM-MODE COMPL SPEC&COLR DOP 10/10 12:00:00 AM EST [facility] ([facility]) ECG ROUTINE ECG W/LEAST 12 LDS W/I&R 10/09/2020 12:00: 00 AM EST [facility] ([facility]) Brief Emotional/Behav Assessment W/ Scoring Doc Per Standard Inst 08/15/2020 12:00:00 AM EST [facility] ([facility]) Results ID Date Data Source [id number] 07/24/2021 10:51:00 AM EST [facility] ([facility]) Name Value Range Interpretation Code Description Data Talisha rce(s) Supporting Document(s) MRI Brain W/O Contrast Laboratory test result [facility] ([facility]) ID Date Data Source [id number] 07/24/2021 10:50:00 AM EST [facility] ([facility]) Name Value Range Interpretation Code Description Data Talisha rce(s) Supporting Document(s) Cve Panel Laboratory test result [facility] ([facility]) Is patient fasting? N Triglycerides 106 mg/dL 35-160 [facility] ([facility]) Is patient fasting? N Cholesterol 230 mg/dL 131-200 Above high normal [facility] ([facility]) Is patient fasting? N Risk Factor 3.5 3.2-4.4 [facility] ([facility]) Is patient fasting? N LDL 145 mg/dL 65-175 [facility] ([facility]) Is patient fasting? N HDL 66 mg/dL 29-86 [facility] ([facility]) Is patient fasting? N LDL/HDL 2.20 1.47-3.22 [facility] ([facility]) Is patient fasting? N ID Date Data Source [id number] 07/24/2021 10:50:00 AM EST [facility] ([facility]) Name Value Range Interpretation Code Description Data Talisha rce(s) Supporting Document(s) Cobalamin (Vitamin B12) [Mass/volume] in Serum or Plasma 694 pg/mL 2 32-1245 [facility] ([facility]) Is patient fasting? N ID Date Data Source [id number] 07/24/2021 10:50:00 AM EST [facility] ([facility]) Name Value Range Interpretation Code Description Data Talisha rce(s) Supporting Document(s) Thyrotropin [Units/volume] in Serum or Plasma 2.17 uIU/mL 0.47-5.01 [facility] ([facility]) Is patient fasting? N Thyroxine (T4) free [Mass/volume] in Serum or Plasma 1.14 ng/dL 0.93- 1.70 [facility] ([facility]) Is patient fasting? N ID Date Data Source [id number] 07/24/2021 10:50:00 AM EST [facility] ([facility]) Name Value Range Interpretation Code Description Data Talisha rce(s) Supporting Document(s) Lyme IgG/IgM Ab Laboratory test result 0.00-0.90 [facility] ([facility]) Is patient fasting? N Lyme Disease Ab, Quant,IgM Laboratory test result 0.00-0.79 [facility] ([facility]) Is patient fasting? N ID Date Data Source [id number] 07/24/2021 10:50:00 AM EST [facility] ([facility]) Name Value Range Interpretation Code Description Data Talisha rce(s) Supporting Document(s) C reactive protein [Mass/volume] in Serum or Plasma by High sensitivity method 3.30 mg/L 1.00-3.00 Above high normal [facility] Is patient fasting? N ID Date Data Source [id number] 07/24/2021 10:50:00 AM EST [facility] ([facility]) Name Value Range Interpretation Code Description Data Talisha rce(s) Supporting Document(s) Sed Rate 7 mm/hr 0-20 [facility] ([facility]) Is patient fasting? N Sed Rate Reenter 7 [facility] ([facility]) Is patient fasting? N ID Date Data Source [id number] 07/24/2021 10:50:00 AM EST [facility] ([facility]) Name Value Range Interpretation Code Description Data Talisha rce(s) Supporting Document(s) Comprehensive Metabo Laboratory test result [facility] ([facility]) Is patient fasting? N Potassium 4.7 meq/L 3.6-5.0 [facility] ([facility]) Is patient fasting? N Sodium 139 meq/L 134-153 [facility] ([facility]) Is patient fasting? N Glucose 84 mg/dL 70-99 [facility] ([facility]) Is patient fasting? N Chloride 104 meq/L 98-107 [facility] ([facility]) Is patient fasting? N Co2 26 meq/L 22-30 [facility] ([facility]) Is patient fasting? N Creatinine 0.6 mg/dL 0.7-1.5 Below low normal [facility] ( [facility]) Is patient fasting? N BUN/Creat 17 8-27 [facility] ([facility]) Is patient fasting? N BUN 10 mg/dL 7-21 [facility] Is patient fasting? N Albumin 4.8 g/dL 3.9-5.0 [facility] ([facility]) Is patient fasting? N Total Protein 7.5 g/dL 6.3-8.2 [facility] ([facility]) Is patient fasting? N Globulin 2.7 GM/DL 2.4-3.2 [facility] ([facility]) Is patient fasting? N Calcium 10.6 mg/dL 8.4-10.2 Above high normal [facility] ([facility]) Is patient fasting? N A/G Ratio 1.8 0.8-2.0 [facility] ([facility]) Is patient fasting? N Alkaline Phos 45 U/L 38-126 [facility] ([facility]) Is patient fasting? N Total Bili 0.9 mg/dL 0.2-1.3 [facility] Is patient fasting? N Sgot/Ast 14 U/L 5-40 [facility] Is patient fasting? N Anion Gap 9.0 mmol/L 8.0-16.0 [facility] ([facility]) Is patient fasting? N SGPT/Alt 12 U/L 7-56 [facility] ([facility]) Is patient fasting? N Age 36 yrs [facility] ([facility]) Is patient fasting? N Afr Amer GFR Laboratory test result [facility] ([facility]) Is patient fasting? N Non-Aa GFR Laboratory test result [facility] ([facility]) Is patient fasting? N ID Date Data Source [id number] 07/24/2021 10:50:00 AM EST [facility] ([facility]) Name Value Range Interpretation Code Description Data Talisha rce(s) Supporting Document(s) CBC W/Automated Diff Laboratory test result [facility] ([facility]) Is patient fasting? N RBC 4.46 10^6/uL 4.20-5.40 [facility] ([facility]) Is patient fasting? N WBC 5.2 10^3/uL 4.2-11.0 [facility] ([facility]) Is patient fasting? N MCV 89.9 fL 81.0-101 [facility] ([facility]) Is patient fasting? N Hemoglobin 13.4 g/dL 12.0-16.0 [facility] ([facility]) Is patient fasting? N Hematocrit 40.1 % 37.0-47.0 [facility] ([facility]) Is patient fasting? N MCH 30.0 pg 27.0-34.0 [facility] ([facility]) Is patient fasting? N MCHC 33.4 g/dL 31.0-36.0 [facility] ([facility]) Is patient fasting? N Platelets 365 10^3/uL 150-450 [facility] [facility]) Is patient fasting? N RDW 12.8 % 11.5-14.5 [facility] ([facility]) Is patient fasting? N MPV 9.4 fL 7.4-10.4 [facility] ([facility]) Is patient fasting? N Lymph 32.6 % 25.0-40.0 [facility] ([facility]) Is patient fasting? N Neut 55.8 % 37.0-80.0 [facility] ([facility]) Is patient fasting? N Eos 2.1 % 0.0-7.0 [facility] ([facility]) Is patient fasting? N Lu[place] 8.3 % 3.0-8.0 Above high normal [facility] ([facility]) Is patient fasting? N %Ig 0.2 % 0.0-0.0 Above high normal [facility] ([facility]) Is patient fasting? N Baso 1.0 % 0.0-2.5 [facility] ([facility]) Is patient fasting? N #Lymph 1.70 10^3/uL 0.60-3.40 [facility] ([facility]) Is patient fasting? N #Neut 2.91 10^3/uL 2.00-6.90 [facility] ([facility]) Is patient fasting? N %NRBC 0.0 % 0.0-0.0 [facility] ([facility]) Is patient fasting? N #Eos 0.11 10^3/uL 0.00-0.70 [facility] ([facility]) Is patient fasting? N #Luquillo 0.43 10^3/uL 0.00-0.90 [facility] ([facility]) Is patient fasting? N #Baso 0.05 10^3/uL 0.00-0.20 [facility] ([facility]) Is patient fasting? N #Ig 0.01 10^3/uL 0.00-0.10 [facility] ([facility]) Is patient fasting? N Manual Diff Laboratory test result M [facility] ([facility]) Is patient fasting? N #NRBC 0.00 10^3/uL 0.00-0.00 [facility] ([facility]) Is patient fasting? N RBC Morph Laboratory test result [facility] ([facility]) Is patient fasting? N ID Date Data Source [id number] 07/25/2021 05:25:00 PM EST [facility] Name Value Range Interpretation Code Description Data Talisha rce(s) Supporting Document(s) Borrelia burgdorferi IgG+IgM Ab [Units/volume] in Serum <0.91 ISR 0. 00-0.90 [facility] Negative <0.91 Equivocal 0.91 - 1.09 Positive >1.09 Borrelia burgdorferi IgM Ab [Units/volume] in Serum by Immun oassay <0.80 index 0.00-0.79 [facility] Negative <0.80 Equivocal 0.80 - 1.19 Positive >1.19 IgM levels may peak at 3-6 weeks post infection, then gradually decline. ID Date Data Source [id number] 07/24/2021 01:16:00 PM [facility] Name Value Range Interpretation Code Description Data Talisha rce(s) Supporting Document(s) Cobalamin (Vitamin B12) [Mass/volume] in Serum or Plasma 694 PG/ML 232 - 1245 [facility] ID Date Data Source [id number] 07/24/2021 01:16:00 PM [facility] Name Value Range Interpretation Code Description Data Talisha rce(s) Supporting Document(s) Thyroxine (T4) free index in Serum or Plasma by calculation 1.14 NG/DL 0.93 - 1.70 [facility] ID Date Data Source [id number] 07/24/2021 01:16:00 PM [facility] Name Value Range Interpretation Code Description Data Talisha rce(s) Supporting Document(s) Thyrotropin [Units/volume] in Serum or Plasma by Detec tion limit <= 0.05 mIU/L 2.17 uIU/mL 0.47 - 5.01 [facility] ID Date Data Source [id number] 07/24/2021 01:07:00 PM [facility] Name Value Range Interpretation Code Description Data Talisha rce(s) Supporting Document(s) C reactive protein [Mass/volume] in Serum or Plasma by High sensitivity method 3.30 MG/L 1.00 - 3.00 H [facility] CDC/S HS-CRP CUT-OFF: RELATIVE RISK: <1.0 mg/L Low 1.0 - 3.0 mg/L Average >3.0 mg/L High Optimally, the average of HS-CRP results repeated two weeks apart should be used for risk assessment. ID Date Data Source [id number] 07/24/2021 01:07:00 PM [facility] Name Value Range Interpretation Code Description Data Talisha rce(s) Supporting Document(s) [facility] Cholesterol [Mass/volume] in Serum or Plasma 230 MG/DL 131 - 200 H [facility] Deprecated Triglyceride [Mass/volume] in Serum or Plasma 106 MG/DL 3 5 - 160 [facility] HDL 66 MG/DL 29 - 86 [facility] Cholesterol in LDL [Mass/volume] in Serum or Plasma by Direc t assay 145 mg/dL 65 - 175 [facility] Cholesterol.total/Cholesterol in HDL [Mass Ratio] in Serum o r Plasma 3.5 3.2 - 4.4 [facility] LDL/HDL 2.20 1.47 - 3.22 [facility] CVE RISK CHOL/HDL LDL/HDLMEN: 1/2 AVERAGE 3.43 1.00 AVERAGE 4.97 3.55 2X AVERAGE 9.55 6.25 3X AVERAGE 23.99 7.99WOMEN: 1/2 AVERAGE 3.27 1.47 AVERAGE 4.44 3.22 2X AVERAGE 7.05 5.03 3X AVERAGE 11.04 6.14 ID Date Data Source [id number] 07/24/2021 01:07:00 PM EST [facility] Name Value Range Interpretation Code Description Data Talisha rce(s) Supporting Document(s) COMPREHENSIVE METABOLIC PANEL [facility] COMPREHENSIVE METABOLIC PANEL Sodium [Moles/volume] in Serum or Plasma 139 mEq/L 134 - 153 [facility] Potassium [Moles/volume] in Serum or Plasma 4.7 mEq/L 3.6 - 5.0 [facility] Chloride [Moles/volume] in Serum or Plasma 104 mEq/L 98 - 107 [facility] Carbon dioxide, total [Moles/volume] in Serum or Plasma 26 MEQ/L 22 - 30 [facility] Glucose [Mass/volume] in Serum or Plasma 84 MG/DL 70 - 99 [facility] BUN 10 MG/DL 7 - 21 [facility] al Creatinine [Mass/volume] in Serum or Plasma 0.6 MG/DL 0.7 - 1.5 L [facility] BUN/CREAT 17 8 - 27 [facility] Protein [Mass/volume] in Serum or Plasma 7.5 G/DL 6.3 - 8.2 [facility] Albumin [Mass/volume] in Serum or Plasma 4.8 G/DL 3.9 - 5.0 [facility] Globulin [Mass/volume] in Serum by calculation 2.7 GM/DL 2.4 - 3.2 [facility] A/G RATIO 1.8 0.8 - 2.0 [facility] Calcium [Mass/volume] in Serum or Plasma 10.6 MG/DL 8.4 - 10.2 H [facility] Bilirubin.total [Mass/volume] in Serum or Plasma 0.9 MG/DL 0.2 - 1.3 [facility] Alkaline phosphatase [Enzymatic activity/volume] in Serum or Plasma 45 U/L 38 - 126 [facility] Aspartate aminotransferase [Enzymatic activity/volume] in Serum or Plasma 14 U/L 5 - 40 [facility] Alanine aminotransferase [Enzymatic activity/volume] in Seru m or Plasma 12 U/L 7 - 56 [facility] Anion gap 3 in Serum or Plasma 9.0 mmol/L 8.0 - 16.0 [facility] AGE 36 yrs [facility] NON-AA GFR >60 mL/min [facility] ital AFR AMER GFR >60 mL/min [facility] Ho spital Male GFR In terprentation 20-49 yrs >60 mL/min Normal 50-59 yrs >56 mL/min Normal 60-69 yrs >49 mL/min Normal 70-79yrs >42 mL/min Normal 80 and above >35 mL/min Normal Female GFR Interpretation 20-39 yrs >60 mL/min Normal 40-49 yrs >58 mL/min Normal 50-59 yrs >51 mL/min Normal 60-69 yrs >45 mL/min Normal 70-79 yrs >39 mL/min Normal 80 and above >32 mL/min Normal ID Date Data Source [id number] 07/24/2021 12:45:00 PM EST [facility] Name Value Range Interpretation Code Description Data Talisha rce(s) Supporting Document(s) Erythrocyte sedimentation rate by Westergren method 7 mm/hr 0 - 20 [facility] SED RATE REENTER 7 [facility] ID Date Data Source [id number] 07/24/2021 12:26:00 PM [facility] Name Value Range Interpretation Code Description Data Talisha rce(s) Supporting Document(s) CBC W/AUTOMATED DIFF [facility] COMPLETE BLOOD COUNT Leukocytes [#/volume] in Blood by Automated count 5.2 10^3/uL 4.2 - 1 1.0 [facility] Erythrocytes [#/volume] in Blood by Automated count 4.46 10^6/uL 4. 20 - 5.40 [facility] Hemoglobin [Mass/volume] in Blood 13.4 g/dL 12.0 - 16.0 [facility] Hematocrit [Volume Fraction] of Blood by Automated count 40.1 % 3 7.0 - 47.0 [facility] Erythrocyte mean corpuscular volume [Entitic volume] by Auto mated count 89.9 fL 81.0 - 101 [facility] Erythrocyte mean corpuscular hemoglobin [Entitic mass] by Automated count 30.0 pg 27.0 - 34.0 [facility] Erythrocyte mean corpuscular hemoglobin concentration [Mass/volume] by Automated count 33.4 g/dL 31.0 - 36.0 [facility] Erythrocyte distribution width [Ratio] by Automated count 12.8 % 11.5 - 14.5 [facility] Platelets [#/volume] in Blood by Automated count 365 10^3/uL 150 - 45 0 [facility] Platelet mean volume [Entitic volume] in Blood by Automated count 9.4 fL 7.4 - 10.4 [facility] Neutrophils/100 leukocytes in Blood by Automated count 55.8 % 37. 0 - 80.0 [facility] Lymphocytes/100 leukocytes in Blood by Manual count 32.6 % 25.0 - 40.0 [facility] Monocytes/100 leukocytes in Blood by Automated count 8.3 % 3.0 - 8.0 H [facility] Eosinophils/100 leukocytes in Blood by Automated count 2.1 % 0.0 - 7.0 [facility] Basophils/100 leukocytes in Blood by Automated count 1.0 % 0.0 - 2.5 [facility] %IG 0.2 % 0.0 - 0.0 H [facility] al %NRBC 0.0 % 0.0 - 0.0 [facility] al Neutrophils [#/volume] in Blood by Automated count 2.91 10^3/uL 2.00 - 6.90 [facility] Lymphocytes [#/volume] in Blood by Automated count 1.70 10^3/uL 0.60 - 3.40 [facility] Monocytes [#/volume] in Blood by Automated count 0.43 10^3/uL 0.00 - 0.90 [facility] Eosinophils [#/volume] in Blood by Automated count 0.11 10^3/uL 0.00 - 0.70 [facility] Basophils [#/volume] in Blood by Automated count 0.05 10^3/uL 0.00 - 0.20 [facility] #IG 0.01 10^3/uL 0.00 - 0.10 [facility] H ospital #NRBC 0.00 10^3/uL 0.00 - 0.[address] [facility] ospital MANUAL DIFF NOT INDICATED [facility] RBC MORPH NOT INDICATED [facility] spital ID Date Data Source [id number] 07/24/2021 10:50:00 AM EST [facility] ([facility]) Name Value Range Interpretation Code Description Data Talisha rce(s) Supporting Document(s) Erythrocyte sedimentation rate by Westergren method Laboratory test result [facility] ([facility]) C reactive protein [Mass/volume] in Serum or Plasma by High sensitivity method Laboratory test result [facility] ([facility]) ID Date Data Source [id number] 09/29/2020 10:24:00 AM [facility] [address] [place] [address] PHONE: [phone] FAX: [phone] Name .................. : YESSICA RAMSAY Winston Acct Number.................. : [id number] ROOM. ................. : MR Number ................... : [id number] Stay type ............. : O/P Discharge Date......... ... : 09/07/20 Admit Date ......... : 09/07/20 Admit Phys .................... : KLINE HARD Date of ....... : 1985 Family Phys ................... : KLINE HARD Phone .................. : [phone] Age ................................ : 35 Film# .................. .:[id number] Sex ................................. : F Unsigned transcriptions are preliminary reports and do not represent a medical or legal document CT ABD & PELV W/O ORAL W/[place] [id number] COMPLETE:09/07/20 12:19 KJE 1653 (REASON FOR ABDOMEN: LIVER DISEASE CT OF THE ABDOMEN AND PELVIS WITHOUT CONTRAST: TECHNIQUE: Imaging was performed without intravenous contrast administration. FINDINGS: Acute bowel pathology is not seen. Abscess formation, ascites, pneumoperitoneum or adenopathy is not seen. The aorta is normal in caliber. In the left lobe of the liver on axial image 30, a 3 mm cystic structure is seen. The liver, spleen, pancreas, adrenal glands and kidneys are otherwise unremarkable. A small amount of gallbladder sludge is seen without additional evidence of acute cholecystitis. The uterus, adnexa and urinary bladder are unremarkable. There is no acute osseous abnormality. The lung bases are clear. IMPRESSION: Tiny cyst in the left lobe of the liver. Gallbladder sludge without additional evidence of acute cholecystitis. Otherwise, unremarkable noncontrast CT abdomen and pelvis. While performing the above CT examination, radiation dose reduction was accomplished utilizing automated exposure control, adjusting of the mA and kV based on the patient's body size and/or the use of imperative reconstructive techniques. CT dose: 643.7 mGycm Electronically Reviewed and Signed By Chayito Mendoza MD , 09/11/20 09:31, [place] Transcribe Initials: DEX , Transcribe Date: 09/09/20 03:48, Dictation Date: Copy for: [address] [place] [address] Page 1 of 2 [facility] [address] [place] [address] PHONE: [phone] FAX: [phone] Name .................. : YESSICA Montero Acct Number.................. : [id number] ROOM. ................. : MR Number ................... : [id number] Stay type ............. : O/P Discharge Date......... ... : 09/07/20 Admit Date ......... : 09/07/20 Admit Phys .................... : KLINE HARD Date of ....... : 1985 Family Phys ................... : KLINE HARD Phone .................. : [phone] Age ................................ : 35 Film# .................. .:[id number] Sex ................................. : F Unsigned transcriptions are preliminary reports and do not represent a medical or legal document CT ABD & PELV W/O ORAL W/[place] [id number] COMPLETE:09/07/20 12:19 KJE 1653 (REASON FOR ABDOMEN: LIVER DISEASE ADDENDUM: 09/28/20 Low attenuation lesion attributed to be of cystic etiology is right of the middle hepatic vein and is attributed to being in the left lobe of the liver by my interpretation. Electronically Reviewed and Signed By Chayito Mendoza MD , 09/29/20 10:24, KGG Transcribe Initials: DEX , Transcribe Date: 09/28/20 21:36, Dictation Date: Copy for: [address] [place] [address] REC Page 2 of 2 Name Value Range Interpretation Code Description Data Talisha rce(s) Supporting Document(s) ID Date Data Source [id number] 08/15/2020 10:47:00 AM EST [facility] ([facility]) Name Value Range Interpretation Code Description Data [facility] Supporting Document(s) Thyroxine (T4) free [Mass/volume] in Serum or Plasma 1.07 ng/dL 0.93- 1.70 [facility]) Is patient fasting? Y Thyrotropin [Units/volume] in Serum or Plasma 2.21 uIU/mL 0.47-5.01 [facility] ([facility]) Is patient fasting? Y ID Date Data Source [id number] 08/15/2020 10:47:00 AM EST [facility] ([facility]) Name Value Range Interpretation Code Description Data [facility](s) Supporting Document(s) Comprehensive Metabo Laboratory test result [facility] ([facility]) Is patient fasting? Y Sodium 137 meq/L 134-153 [facility] Is patient fasting? Y Co2 27 meq/L 22-30 [facility] Is patient fasting? Y Potassium 4.8 meq/L 3.6-5.0 [facility] Is patient fasting? Y Chloride 102 meq/L 98-107 [facility] Is patient fasting? Y BUN 13 mg/dL 7-21 [facility] Is patient fasting? Y Glucose 85 mg/dL 65-110 [facility] Is patient fasting? Y Creatinine 0.7 mg/dL 0.7-1.5 [facility]) Is patient fasting? Y Total Protein 7.3 g/dL 6.3-8.2 [facility] ([facility]) Is patient fasting? Y BUN/Creat 19 8-27 [facility] Is patient fasting? Y Albumin 4.7 g/dL 3.9-5.0 [facility] Is patient fasting? Y Globulin [Mass/volume] in Serum by calculation 2.6 GM/DL 2.4-3.2 [facility] ([facility]) Is patient fasting? Y A/G Ratio 1.8 0.8-2.0 [facility] ([facility]) Is patient fasting? Y Total Bili 0.9 mg/dL 0.2-1.3 [facility] ([facility]) Is patient fasting? Y Alkaline Phos 36 U/L 38-126 [facility] ([facility]) Is patient fasting? Y Calcium 10.5 mg/dL 8.4-10.2 [facility] ([facility]) Is patient fasting? Y SGPT/Alt 10 U/L 7-56 [facility] ([facility]) Is patient fasting? Y Sgot/Ast 14 U/L 5-40 [facility]) Is patient fasting? Y Non-Aa GFR Laboratory test result [facility] ([facility]) Is patient fasting? Y Age 35 yrs [facility] ([facility]) Is patient fasting? Y Anion gap in Serum or Plasma 8.0 mmol/L 8.0-16.0 [facility] ([facility]) Is patient fasting? Y Afr Amer GFR Laboratory test result MEDE NT ([facility]) Is patient fasting? Y ID Date Data Source [id number] 08/15/2020 10:47:00 AM EST [facility] ([facility]) Name Value Range Interpretation Code Description Data Talisha rce(s) Supporting Document(s) Folate [Mass/volume] in Serum or Plasma Laboratory test result 4.4-31 .0 [facility] ([facility]) Is patient fasting? Y Cobalamin (Vitamin B12) [Mass/volume] in Serum or Plasma 861 pg/mL 2 32-1245 [facility] ([facility]) Is patient fasting? Y ID Date Data Source [id number] 08/15/2020 10:47:00 AM EST [facility] ([facility]) Name Value Range Interpretation Code Description Data Talisha rce(s) Supporting Document(s) Cve Panel Laboratory test result [facility] ([facility]) Is patient fasting? Y Cholesterol 210 mg/dL 131-200 [facility] ([facility]) Is patient fasting? Y HDL 70 mg/dL 29-86 [facility] Is patient fasting? Y Triglycerides 94 mg/dL 35-160 [facility] ([facility]) Is patient fasting? Y Risk Factor 3.0 3.2-4.4 [facility]) Is patient fasting? Y LDL/HDL 1.87 1.47-3.22 [facility] Is patient fasting? Y LDL 131 mg/dL 65-175 [facility] Is patient fasting? Y ID Date Data Source [id number] 08/15/2020 10:47:00 AM EST [facility] ([facility] Name Value Range Interpretation Code Description Data Talisha rce(s) Supporting Document(s) CBC W/Automated Diff Laboratory test result [facility] ([facility]) Is patient fasting? Y RBC 4.38 10^6/uL 4.20-5.40 [facility]) Is patient fasting? Y Hemoglobin 13.3 g/dL 12.0-16.0 [facility]) Is patient fasting? Y WBC 5.9 10^3/uL 4.2-11.0 [facility]) Is patient fasting? Y Hematocrit 40.1 % 37.0-47.0 [facility]) Is patient fasting? Y MCV 91.6 fL 81.0-101 [facility] Is patient fasting? Y Erythrocyte distribution width [Ratio] by Automated count 13.2 % 11.5-14.5 [facility]) Is patient fasting? Y MCHC 33.2 g/dL 31.0-36.0 [facility] Is patient fasting? Y MCH 30.4 pg 27.0-34.0 [facility] Is patient fasting? Y Neut 61.0 % 37.0-80.0 [facility] Is patient fasting? Y Platelet mean volume [Entitic volume] in Blood by [place] 9.7 fL 7.4-10.4 [facility]) Is patient fasting? Y Platelets 341 10^3/uL 150-450 [facility] Is [facility] fasting? Y Lymph 28.2 % 25.0-40.0 [facility] Is patient fasting? Y Lu[place]illo 6.6 % 3.0-8.0 [facility] Is patient fasting? Y Eos 2.6 % 0.0-7.0 [facility] Is patient fasting? Y Baso 1.4 % 0.0-2.5 [facility] Is patient fasting? Y %Ig 0.2 % 0.0-0.0 [facility] Is patient fasting? Y #Lymph 1.66 10^3/uL 0.60-3.40 [facility] Is patient fasting? Y #Neut 3.59 10^3/uL 2.00-6.90 [facility] Is patient fasting? Y %NRBC 0.0 % 0.0-0.0 [facility] Is patient fasting? Y #Eos 0.15 10^3/uL 0.00-0.70 [facility] Is patient fasting? Y #Luquillo 0.39 10^3/uL 0.00-0.90 [facility] Is patient fasting? Y #Baso 0.08 10^3/uL 0.00-0.20 [facility] Is patient fasting? Y #Ig 0.01 10^3/uL 0.00-0.10 [facility] Is patient fasting? Y #NRBC 0.00 10^3/uL 0.00-0.00 [facility] Is patient fasting? Y Manual Diff Laboratory test result [facility] T [facility]) Is patient fasting? Y RBC Morph Laboratory test result [facility]) Is patient fasting? Y ID Date Data Source [id number] 08/15/2020 10:47:00 AM EST [facility] ([facility]) Name Value Range Interpretation Code Description Data Talisha rce(s) Supporting Document(s) Thyroxine (T4) free [Mass/volume] in Serum or Plasma 1.07 ng/dL 0.93- 1.70 [facility] ([facility]) Is patient fasting? Y Thyrotropin [Units/volume] in Serum or Plasma 2.21 uIU/mL 0.47-5.01 [facility] ([facility]) Is patient fasting? Y ID Date Data Source [id number] 08/15/2020 10:47:00 AM EST [facility] ([facility]) Name Value Range Interpretation Code Description Data Talisha rce(s) Supporting Document(s) Sodium 137 meq/L 134-153 [facility] ([facility]) Is patient fasting? Y Comprehensive Metabo Laboratory test result [facility] ([facility]) Is patient fasting? Y Chloride 102 meq/L 98-107 [facility] ([facility]) Is patient fasting? Y Potassium 4.8 meq/L 3.6-5.0 [facility] ([facility]) Is patient fasting? Y Co2 27 meq/L 22-30 [facility] ([facility]) Is patient fasting? Y BUN 13 mg/dL 7-21 [facility] ([facility]) Is patient fasting? Y Glucose 85 mg/dL 65-110 [facility] ([facility]) Is patient fasting? Y Creatinine 0.7 mg/dL 0.7-1.5 [facility] ([facility]) Is patient fasting? Y Total Protein 7.3 g/dL 6.3-8.2 [facility] ([facility]) Is patient fasting? Y Albumin 4.7 g/dL 3.9-5.0 [facility] ([facility]) Is patient fasting? Y BUN/Creat 19 8-27 [facility] ([facility]) Is patient fasting? Y Globulin 2.6 GM/DL 2.4-3.2 [facility] ([facility]) Is patient fasting? Y A/G Ratio 1.8 0.8-2.0 [facility] ([facility]) Is patient fasting? Y Calcium 10.5 mg/dL 8.4-10.2 Above high normal [facility] ([facility]) Is patient fasting? Y Total Bili 0.9 mg/dL 0.2-1.3 [facility] ([facility]) Is patient fasting? Y Alkaline Phos 36 U/L 38-126 Below low normal [facility] T ([facility]) Is patient fasting? Y Sgot/Ast 14 U/L 5-40 [facility] ([facility]) Is patient fasting? Y Age 35 yrs [facility] ([facility]) Is patient fasting? Y Anion Gap 8.0 mmol/L 8.0-16.0 [facility] ([facility]) Is patient fasting? Y SGPT/Alt 10 U/L 7-56 [facility] ([facility]) Is patient fasting? Y Non-Aa GFR Laboratory test result [facility] ([facility]) Is patient fasting? Y Afr Amer GFR Laboratory test result [facility] ([facility]) Is patient fasting? Y ID Date Data Source [id number] 08/15/2020 10:47:00 AM EST [facility] ([facility]) Name Value Range Interpretation Code Description Data Talisha rce(s) Supporting Document(s) Cobalamin (Vitamin B12) [Mass/volume] in Serum or Plasma 861 pg/mL 2 32-1245 [facility] ([facility]) Is patient fasting? Y Folate [Mass/volume] in Serum or Plasma Laboratory test result 4.4-31 .0 [facility] ([facility]) Is patient fasting? Y ID Date Data Source [id number] 08/15/2020 10:47:00 AM EST [facility] ([facility]) Name Value Range Interpretation Code Description Data Talisha rce(s) Supporting Document(s) Cve Panel Laboratory test result [facility] ([facility]) Is patient fasting? Y Cholesterol 210 mg/dL 131-200 Above high normal [facility] ([facility]) Is patient fasting? Y Triglycerides 94 mg/dL 35-160 [facility] ([facility]) Is patient fasting? Y LDL 131 mg/dL 65-175 [facility] ([facility]) Is patient fasting? Y HDL 70 mg/dL 29-86 [facility] ([facility]) Is patient fasting? Y LDL/HDL 1.87 1.47-3.22 [facility] ([facility]) Is patient fasting? Y Risk Factor 3.0 3.2-4.4 Below low normal [facility] ([facility]) Is patient fasting? Y ID Date Data Source [id number] 08/15/2020 10:47:00 AM EST [facility] ([facility]) Name Value Range Interpretation Code Description Data Talisha rce(s) Supporting Document(s) Calcidiol [Mass/volume] in Serum or Plasma 40 ng/mL [facility] ([facility]) Is patient fasting? Y ID Date Data Source [id number] 08/15/2020 10:47:00 AM EST [facility] ([facility]) Name Value Range Interpretation Code Description Data Talisha rce(s) Supporting Document(s) WBC 5.9 10^3/uL 4.2-11.0 [facility] ([facility]) Is patient fasting? Y CBC W/Automated Diff Laboratory test result [facility] ([facility]) Is patient fasting? Y Hemoglobin 13.3 g/dL 12.0-16.0 [facility] ([facility]) Is patient fasting? Y Hematocrit 40.1 % 37.0-47.0 [facility] ([facility]) Is patient fasting? Y RBC 4.38 10^6/uL 4.20-5.40 [facility] ([facility]) Is patient fasting? Y MCHC 33.2 g/dL 31.0-36.0 [facility] ([facility]) Is patient fasting? Y MCV 91.6 fL 81.0-101 [facility] ([facility]) Is patient fasting? Y MCH 30.4 pg 27.0-34.0 [facility] ([facility]) Is patient fasting? Y RDW 13.2 % 11.5-14.5 [facility] ([facility]) Is patient fasting? Y Platelets 341 10^3/uL 150-450 [facility] ([facility]) Is patient fasting? Y Lymph 28.2 % 25.0-40.0 [facility] ([facility]) Is patient fasting? Y Neut 61.0 % 37.0-80.0 [facility] ([facility]) Is patient fasting? Y MPV 9.7 fL 7.4-10.4 [facility] ([facility]) Is patient fasting? Y Eos 2.6 % 0.0-7.0 [facility] ([facility]) Is patient fasting? Y Baso 1.4 % 0.0-2.5 [facility] ([facility]) Is patient fasting? Y [place] 6.6 % 3.0-8.0 [facility] ([facility]) Is patient fasting? Y %Ig 0.2 % 0.0-0.0 Above high normal [facility] ([facility]) Is patient fasting? Y #Neut 3.59 10^3/uL 2.00-6.90 [facility] ([facility]) Is patient fasting? Y %NRBC 0.0 % 0.0-0.0 [facility] ([facility]) Is patient fasting? Y #Eos 0.15 10^3/uL 0.00-0.70 [facility] ([facility]) Is patient fasting? Y #Lymph 1.66 10^3/uL 0.60-3.40 [facility] ([facility]) Is patient fasting? Y #[place] 0.39 10^3/uL 0.00-0.90 [facility] ([facility]) Is patient fasting? Y #Ig 0.01 10^3/uL 0.00-0.10 [facility] ([facility]) Is patient fasting? Y #Baso 0.08 10^3/uL 0.00-0.20 [facility] ([facility]) Is patient fasting? Y #NRBC 0.00 10^3/uL 0.00-0.00 [facility] ([facility]) Is patient fasting? Y Manual Diff Laboratory test result [facility] ([facility]) Is patient fasting? Y RBC Morph Laboratory test result [facility] ([facility]) Is patient fasting? Y ID Date Data Source [id number] 08/15/2020 09:47:00 PM [facility] Name Value Range Interpretation Code Description Data Talisha rce(s) Supporting Document(s) Folate [Mass/volume] in Serum or Plasma >20.0 NG/ML 4.4 - 31.0 [facility] ID Date Data Source [id number] 08/15/2020 04:48:00 PM [facility] Value Range Interpretation Code Description Data Talisha rce(s) Supporting Document(s) Thyrotropin [Units/volume] in Serum or Plasma by Detec tion limit <= 0.05 mIU/L 2.21 uIU/mL 0.47 - 5.01 [facility] ID Date Data Source [id number] 08/15/2020 04:48:00 PM [facility] Value Range Interpretation Code Description Data Talisha rce(s) Supporting Document(s) Thyroxine (T4) free index in Serum or Plasma by calculation 1.07 NG/DL 0.93 - 1.70 [facility] ID Date Data Source [id number] 08/15/2020 04:48:00 PM [facility] Value Range Interpretation Code Description Data Talisha rce(s) Supporting Document(s) Cobalamin (Vitamin B12) [Mass/volume] in Serum or Plasma 861 PG/ML 232 - 1245 [facility] ID Date Data Source [id number] 08/15/2020 04:48:00 PM [facility] Value Range Interpretation Code Description Data Talisha rce(s) Supporting Document(s) Calcidiol [Moles/volume] in Serum or Plasma 40 NG/ML [facility] VITAMIN-D(2 5HYDROXY) Deficiency: <=20 ng/ml Insufficiency: 21-29 ng/ml Preferred level: => 30 ng/ml ID Date Data Source [id number] 08/15/2020 04:12:00 PM [facility] Value Range Interpretation Code Description Data Talisha rce(s) Supporting Document(s) COMPREHENSIVE METABOLIC PANEL [facility] COMPREHENSIVE METABOLIC PANEL Sodium [Moles/volume] in Serum or Plasma 137 mEq/L 134 - 153 [facility] Potassium [Moles/volume] in Serum or Plasma 4.8 mEq/L 3.6 - 5.0 [facility] Chloride [Moles/volume] in Serum or Plasma 102 mEq/L 98 - 107 [facility] Carbon dioxide, total [Moles/volume] in Serum or Plasma 27 MEQ/L 22 - 30 [facility] Glucose [Mass/volume] in Serum or Plasma 85 MG/DL 65 - 110 [facility] BUN 13 MG/DL 7 - 21 [facility] Creatinine [Mass/volume] in Serum or Plasma 0.7 MG/DL 0.7 - 1.5 [facility] BUN/CREAT 19 8 - 27 [facility] Protein [Mass/volume] in Serum or Plasma 7.3 G/DL 6.3 - 8.2 [facility] Albumin [Mass/volume] in Serum or Plasma 4.7 G/DL 3.9 - 5.0 [facility] Globulin [Mass/volume] in Serum by calculation 2.6 GM/DL 2.4 - 3.2 [facility] A/G RATIO 1.8 0.8 - 2.0 [facility] Calcium [Mass/volume] in Serum or Plasma 10.5 MG/DL 8.4 - 10.2 H [facility] Bilirubin.total [Mass/volume] in Serum or Plasma 0.9 MG/DL 0.2 - 1.3 [facility] Alkaline phosphatase [Enzymatic activity/volume] in Serum or Plasma 36 U/L 38 - 126 L [facility] Aspartate aminotransferase [Enzymatic activity/volume] in Serum or Plasma 14 U/L 5 - 40 [facility] Alanine aminotransferase [Enzymatic activity/volume] in Seru m or Plasma 10 U/L 7 - 56 [facility] Anion gap 3 in Serum or Plasma 8.0 mmol/L 8.0 - 16.0 [facility] AGE 35 yrs [facility] al NON-AA GFR >60 mL/min [facility] ital AFR AMER GFR >60 mL/min [facility] Ho spital Male GFR In terprentation 20-49 yrs >60 mL/min Normal 50-59 yrs >56 mL/min Normal 60-69 yrs >49 mL/min Normal 70-79yrs >42 mL/min Normal 80 and above >35 mL/min Normal Female GFR Interpretation 20-39 yrs >60 mL/min Normal 40-49 yrs >58 mL/min Normal 50-59 yrs >51 mL/min Normal 60-69 yrs >45 mL/min Normal 70-79 yrs >39 mL/min Normal 80 and above >32 mL/min Normal ID Date Data Source [id number] 08/15/2020 04:12:00 PM EST [facility] Name Value Range Interpretation Code Description Data Talisha rce(s) Supporting Document(s) [facility] Cholesterol [Mass/volume] in Serum or Plasma 210 MG/DL 131 - 200 H [facility] Deprecated Triglyceride [Mass/volume] in Serum or Plasma 94 MG/DL 3 5 - 160 [facility] HDL 70 MG/DL 29 - 86 [facility] Cholesterol in LDL [Mass/volume] in Serum or Plasma by Direc t assay 131 mg/dL 65 - 175 [facility] Cholesterol.total/Cholesterol in HDL [Mass Ratio] in Serum o r Plasma 3.0 3.2 - 4.4 L [facility] LDL/HDL 1.87 1.47 - 3.22 [facility] CVE RISK CHOL/HDL LDL/HDLMEN: 1/2 AVERAGE 3.43 1.00 AVERAGE 4.97 3.55 2X AVERAGE 9.55 6.25 3X AVERAGE 23.99 7.99WOMEN: 1/2 AVERAGE 3.27 1.47 AVERAGE 4.44 3.22 2X AVERAGE 7.05 5.03 3X AVERAGE 11.04 6.14 ID Date Data Source [id number] 08/15/2020 03:37:00 PM EST [facility] Name Value Range Interpretation Code Description Data Talisha rce(s) Supporting Document(s) CBC W/AUTOMATED DIFF [facility] COMPLETE BLOOD COUNT Leukocytes [#/volume] in Blood by Automated count 5.9 10^3/uL 4.2 - 1 1.0 [facility] Erythrocytes [#/volume] in Blood by Automated count 4.38 10^6/uL 4. 20 - 5.40 [facility] Hemoglobin [Mass/volume] in Blood 13.3 g/dL 12.0 - 16.0 [facility] Hematocrit [Volume Fraction] of Blood by Automated count 40.1 % 3 7.0 - 47.0 [facility] Erythrocyte mean corpuscular volume [Entitic volume] by Auto mated count 91.6 fL 81.0 - 101 [facility] Erythrocyte mean corpuscular hemoglobin [Entitic mass] by Automated count 30.4 pg 27.0 - 34.0 [facility] Erythrocyte mean corpuscular hemoglobin concentration [Mass/volume] by Automated count 33.2 g/dL 31.0 - 36.0 [facility] Erythrocyte distribution width [Ratio] by Automated count 13.2 % 11.5 - 14.5 [facility] Platelets [#/volume] in Blood by Automated count 341 10^3/uL 150 - 45 0 [facility] Platelet mean volume [Entitic volume] in Blood by Automated count 9.7 fL 7.4 - 10.4 [facility] Neutrophils/100 leukocytes in Blood by Automated count 61.0 % 37. 0 - 80.0 [facility] Lymphocytes/100 leukocytes in Blood by Manual count 28.2 % 25.0 - 40.0 [facility] Monocytes/100 leukocytes in Blood by Automated count 6.6 % 3.0 - 8.0 [facility] Eosinophils/100 leukocytes in Blood by Automated count 2.6 % 0.0 - 7.0 [facility] Basophils/100 leukocytes in Blood by Automated count 1.4 % 0.0 - 2.5 [facility] %IG 0.2 % 0.0 - 0.0 [facility] %NRBC 0.0 % 0.0 - 0.0 [facility] al Neutrophils [#/volume] in Blood by Automated count 3.59 10^3/uL 2.00 - 6.90 [facility] Lymphocytes [#/volume] in Blood by Automated count 1.66 10^3/uL 0.60 - 3.40 [facility] Monocytes [#/volume] in Blood by Automated count 0.39 10^3/uL 0.00 - 0.90 [facility] Eosinophils [#/volume] in Blood by Automated count 0.15 10^3/uL 0.00 - 0.70 [facility] Basophils [#/volume] in Blood by Automated count 0.08 10^3/uL 0.00 - 0.20 [facility] #IG 0.01 10^3/uL 0.00 - 0.10 [facility] H ospital #NRBC 0.00 10^3/uL 0.00 - 0.[address] [facility] ospital MANUAL DIFF NOT INDICATED [facility] RBC MORPH NOT INDICATED [facility] spital Procedure Social History Code Duration Value Status Description Data Source(s ) Smoking 10/09/2020 12:00:00 AM EST Patient has never smoked co mpleted Patient has never smoked [facility] ([facility]) Vital Signs ID Date Data Source UNK Name Value Range Interpretation Code Description Data Source(s) Systolic blood pressure 112 mm[Hg] 112 mm[Hg] [facility] Body temperature 97.2 [degF] 97.2 [degF] [facility] ([facility]) Respiratory rate 16 /min 16 /min [facility] ( [facility]) Heart rate 66 /min 66 /min [facility] ([facility]) Body mass index (BMI) [Ratio] 22.2 kg/m2 22.2 k g/m2 [facility] ([facility]) Body surface area Derived from formula 1.70 m2 1.70 m2 [facility] ([facility]) Diastolic blood pressure 78 mm[Hg] 78 mm[Hg] [facility] ([facility]) Oxygen saturation in Arterial blood by Pulse oximetry 98 % 98 % [facility] ([facility]) Body weight 137.38 [lb_av] 137.38 [lb_av] [facility] ([facility]) Body weight 62.313 kg 62.313 kg [facility] ([facility]) Body height 66 [in_i] 66 [in_i] [facility] ([facility]) 5'6" Body weight 133.00 [lb_av] 133.00 [lb_av] [facility] ([facility]) Systolic blood pressure--standing 114 mm[Hg] 11 4 mm[Hg] [facility] ([facility]) [employer], adult cuff/Ra; HR: 93 bpm Diastolic blood pressure--standing 76 mm[Hg] 7 6 mm[Hg] [facility] ([facility]) [employer], adult cuff/Ra; HR: 93 bpm Body height 66 [in_i] 66 [in_i] [facility] 5'6" Systolic blood pressure--sitting 124 mm[Hg] 124 mm[Hg] [facility] ([facility]) [employer], adult cuff/Ra; HR: 83 bpm Diastolic blood pressure--sitting 73 mm[Hg] 73 mm[Hg] [facility] ([facility]) [employer], adult cuff/Ra; HR: 83 bpm Heart rate 83 /min 83 /min [facility] Systolic blood pressure--supine 122 mm[Hg] 122 mm[Hg] [facility] ([facility]) [employer], adult cuff/Ra; HR: 85 bpm Diastolic blood pressure--supine 72 mm[Hg] 72 mm[Hg] [facility] ([facility]) [employer], adult cuff/Ra; HR: 85 bpm Body mass index (BMI) [Ratio] 21.5 kg/m2 21.5 k g/m2 [facility] ([facility]) Diastolic blood pressure 60 mm[Hg] 60 mm[Hg] [facility] ([facility]) Body height 66 [in_i] 66 [in_i] [facility] ([facility]) 5'6" Heart rate 84 /min 84 /min [facility] ([facility]) Body temperature 97.2 [degF] 97.2 [degF] [facility] ([facility]) Respiratory rate 18 /min 18 /min [facility] ( [facility]) Oxygen saturation in Arterial blood by Pulse oximetry 99 % 99 % [facility] ([facility]) Body weight 131.00 [lb_av] 131.00 [lb_av] [facility] ([facility]) Body weight 59.422 kg 59.422 kg [facility] ([facility]) Systolic blood pressure 120 mm[Hg] 120 mm[Hg] M [facility] ([facility]) Body mass index (BMI) [Ratio] 21.1 kg/m2 21.1 [facility] Body surface area Derived from formula 1.67 m2 1.67 m2 [facility] ([facility])
[2021-08-01] MEDS ORDERED: RIZA10TA58 (21:24)
[2021-08-01] MEDS ORDERED: TOPI50TA9 (21:24)
[2021-08-01] MEDS ORDERED: TRI-TAB (21:24)
[2021-08-02] MEDS ORDERED: METOCLOPRAMIDE INJ 10MG/2ML VIAL (J2765 PER 1) IV ONE (07:40)
[2021-08-02] MEDS ORDERED: KETOROLAC 30 MG/ML 1ML VIAL IV ONE (07:40)
[2021-08-02] MEDS ORDERED: NS 1,000 ML IV ONE (07:40)
[2021-08-02 07:59] LABS: BASO # 0.1 10^3/uL (0.0-0.2); BASO % 1.1 % (0.0-1.0); EOS # 0.1 10^3/uL (0.0-0.5); EOS % 1.9 % (0.0-3.0); HEMATOCRIT 42.9 % (36.0-47.0); HEMOGLOBIN 14.5 g/dl (12.0-15.5); LYMPH # 2.1 10^3/uL (1.5-5.0); LYMPH % 28.6 % (24.0-44.0); MEAN CORPUSCULAR HEMOGLOBIN 30.5 pg (27.0-33.0); MEAN CORPUSCULAR HGB CONC 33.8 g/dl (32.0-36.5); MEAN CORPUSCULAR VOLUME 90.1 fl (80.0-96.0); MONO # 0.6 10^3/uL (0.0-0.8); MONO % 7.8 % (2.0-8.0); NEUTROPHILS # 4.4 10^3/uL (1.5-8.5); NEUTROPHILS % 60.3 % (36.0-66.0); PLATELET COUNT, AUTOMATED 430 10^3/uL (150-450); RED BLOOD COUNT 4.76 10^6/uL (4.00-5.40); WHITE BLOOD COUNT 7.3 10^3/uL (4.0-10.0)
--- OUTSIDE RECORDS SUMMARY | 2021-08-02 08:01 | CCD ---
Author Author [facility] Organization [facility] Address Unknown Phone Unavailable Care Team Providers [employer] Architect Name Role Phone MARIBELL KLINE MD Unavailable [...] Unavailable MARIBELL KLINE MD Unavailable Unavailable MARIBELL KLNIE MD Unavailable Unavailable MARIBELL KLINE MD Unavailable [...] Unavailable Unavailable MARIBELL KLINE MD Unavailable Unavailable KLINEMARIBELL BARRETT MD Unavailable Unavailable MARIBELL KLINE MD Unavailable Unavailable KLINEMARIBELL BARRETT MD Unavailable Unavailable KLINEMARIBELL BARRETT MD Unavailable Unavailable KLINEMARIBELL BARRETT MD Unavailable Unavailable KLINEMARIBELL BARRETT MD Unavailable Unavailable KLINEMARIBELL BARRETT MD Unavailable Unavailable KLINEMARIBELL BARRETT MD Unavailable Unavailable KLINEMARIBELL BARRETT MD Unavailable Unavailable KLINEMARIBELL BARRETT MD Unavailable Unavailable KLINEMARIBELL BARRETT MD Unavailable Unavailable KLINEMARIBELL BARRETT MD Unavailable Unavailable KLINEMARIBELL BARRETT MD Unavailable Unavailable KLINEMARIBELL BARRETT MD Unavailable Unavailable MARIBELL KLINE MD Unavailable [...] Unavailable Unavailable MARIBELL KLINE MD Unavailable Unavailable ANTECOL, Peyton RIDLEY MD [...] Peyton RIDLEY MD Unavailable Unavailable ANTECOL, Peyton RDILEY MD Unavailable Unavailable ANTECOL, Peyton RIDLEY MD Unavailable Unavailable ANTECOL, Peytno RIDLEY MD Unavailable Unavailable ANTECOL, Peyton KEYANA HUNTER Unavailable Unavailable ANTECOL, Peyton RIDLEY MD Unavailable [...] is protected by Article 27-F of the [facility] Public Health law. If you continue you may have access to information: Regarding HIV / AIDS; Provided by facilities licensed or operated by the [facility] Office of Mental Health; or Provided by the [facility] Office for People With Developmental Disabilities. If such information is present, then the following [facility] mandated warning applies: This information has been [...] law may result in a fine or detention sentence or both. A general authorization for the release of medical or other information is NOT sufficient authorization for further disc losure. Allergies and Adverse Reactions Type Description Substance Reaction Status Data Source(s ) Propensity to adverse reactions seasonal seasonal [facility] Prop[facility] to adverse [facility] Family Member Name Family Member Gender Family Member Status Date o f Status Description Data Source(s) Unknown Unknown Problem [facility] ([facility]) Unknown Unknown Problem [facility] ([facility]) Encounters Encounter Providers Location Date Indications Data Source(s ) Outpatient Attender: MARIBELL KLINE MDConsultant: MARIBLEL Singh MD 07/24/2021 11:08:27 AM [facility] Outpatient Attender: MARIBELL KLINE MDConsultant: MARIBELL Singh MD 07/24/2021 09:56:[address] [facility] - 07/24/2021 09:56:00 AM [facility] Outpatient Attender: MARIBELL KLINE MD Family Practice 07/24/2021 0 9:00:00 AM EST [facility] ([facility]) Outpatient Attender: KEYANA MACIEL MD Main Office 10/09/2020 11:30:00 AM EST [facility] ([facility]) Outpatient Attender: MARIBELL KLINE MDConsultant: MARIBELL Singh MD 09/13/2020 10:39:[address] [facility] - 09/13/2020 10:39:00 AM [facility] Outpatient Attender: MARIBELL KLINE MDConsultant: MARIBELL Singh MD 09/07/2020 10:44:[address] [facility] - 09/07/2020 11:44:00 AM [facility] Patient discharged. Outpatient Attender: MARIBELL KLINE MDConsultant: MARIBELL Singh MD 08/15/2020 09:57:[address] [facility] - 08/15/2020 09:57:00 AM [facility] Outpatient Attender: MARIBELL KLINE MD Family Practice 08/15/2020 0 9:20:00 AM EST [facility] ([facility]) Immunizations Vaccine Date Status Description Data Source(s) COVID-19 VACCINE Pfizer 07/07/2021 12:00:00 AM EDT completed [facility] Vaccine Series Complete: YESThis Data wa s Submitted to [facility] Via [facility]. COVID-19 VACC, MRNA(PFIZER)/PF 07/07/2021 12:00:00 AM EDT completed [facility] DIPH,PERTUSS(ACELL),TET VAC/PF 06/23/2021 12:00:00 AM EDT completed [facility] COVID-19 VACCINE Pfizer 12/04/2020 12:00:00 AM EDT completed [facility] Vaccine Series Complete: NOThis Data was Submitted to [facility] Via [facility]. Medications Medication Brand Name Start Date Product Form Dose Route Admi nistrative Instructions Pharmacy Instructions Status Indications Reaction Description Data Source(s) Flonase Allergy Relief Flonase Allergy Relief 07/24/2021 12:00:00 AM EST NASAL active [facility] ([facility]) topiramate 50 MG Oral Tablet Topiramate 07/24/2021 12:00:00 AM EST ORAL active [facility] ([facility]) rizatriptan 10 MG Disintegrating Oral Tablet Rizatriptan Willem zoate 07/24/2021 12:00:00 AM EST ORAL active M [facility] ([facility]) 60 mcg (15 mcg x 4)/0.5 mL 06/23/2021 12:00:00 AM EDT syring e 0 INJECT DIRECTED INJECT DIRECTED SOLD: 06/23/2021 [facility] Tri[facility]Sprinte[facility] 10/08/2020 12:00:00 AM EST ORAL active [facility] ([facility]) Ascorbic Acid 60 MG / Beta Carotene 5000 UNT / Copper Sulfate 40 MG / dl-alpha tocopheryl acetate 30 UNT / Sodium Selenite 0.04 MG / Zinc Oxide 40 MG Oral Tablet Multivitamin Adult (Minerals) 08/15/2020 12:00:00 AM EST ORAL active [facility] ([facility]) Multivitamin Adult 08/15/2020 12:00:00 AM EST ORAL active [facility] ([facility]) Insurance Providers Payer name Policy type / Coverage type Policy ID Covered constitution party ID Covered constitution party's relationship to pearce Policy Pearce Plan Information [facility] [id number] [facility] [id number] 18 [id number] [facility] [id number] 18 [id number] [facility] [id number] 18 [id number] [facility] O [id number] [facility] Commercial [id number] Self [id number] [facility] Commercial [id number] Self [facility] [id number] 18 [id number] Problems, Conditions, and Diagnoses Code Display Name Description Problem Type Effective Dates Data Source(s) J309 Allergic rhinitis, unspecified Allergic rhinitis, unsp ecified Diagnosis 07/24/2021 09:56:00 AM [facility] [id number] Migraine without aura, not intractable, without status migrainosus Migraine without aura, not intractable, without status migrainosus Diagnosis 07/24/2021 09:56:00 AM [facility] Z0001 Encounter for general adult medical exam ination with abnormal findings Encounter for general adult medical examination with abnormal findings Diagnosis 07/24/2021 09:56:00 AM [facility] K829 Disease of gallbladder, unspecified Disease of g allbladder, unspecified Diagnosis 09/13/2020 10:39:00 AM [facility] K7689 Other specified diseases of liver Other specifie d diseases of liver Diagnosis 09/13/2020 10:39:00 AM [facility] E559 Vitamin D deficiency, unspecified Vitamin D defi ciency, unspecified Diagnosis 09/13/2020 10:39:00 AM [facility] K769 Liver disease, unspecified Liver disease, unspecified Diagnosis 09/07/2020 10:44:00 AM [facility] R55 Syncope and collapse Syncope and collapse Diagnosis 08/15/2020 09:57:00 AM [facility] Z0000 Encounter for general adult medical exam ination without abnormal findings Encounter for general adult medical examination without abnormal findings Diagnosis 08/15/2020 09:57:00 AM [facility] R07.89 Chest pain Chest pain Problem 10/09/2020 12:00:00 AM ES T [facility] ([facility]) R00.2 Palpitations Palpitations Problem 10/09/2020 12:00:00 A M EST [facility] ([facility]) R94.31 Electrocardiogram abnormal Electrocardiogram abnormal Problem 10/09/2020 12:00:00 AM EST [facility] ([facility]) 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 Conduction disorder o f the heart Problem 10/09/2020 12:00:00 AM EST [facility] ([facility]) R55 Syncope and collapse Syncope and collapse Problem 10/09/2020 12:00:00 AM EST [facility] ([facility]) Surgeries/Procedures Procedure Description Date Indications Data Source(s) PERIODIC PREVENTIVE MED EST PATIENT 18-39 YRS 07/24/20 12:00:00 AM EST [facility] ([facility]) XTRNL PT ACTIVATED ECG RECORD MONITOR 30 DAYS 10/31/19 12:00:00 AM EST [facility] ([facility]) XTRNL PT ACTIVTD ECG DWNLD 30 DAYS PHYS R&I 10/30/2020 12:00:00 AM EST [facility] ([facility]) ECHO TTHRC R-T 2D W/WOM-MODE COMPL SPEC&COLR DOP 10/10 12:00:00 AM EST [facility] ([facility]) ECG ROUTINE ECG W/LEAST 12 LDS W/I&R 10/09/2020 12:00: 00 AM EST [facility] ([facility]) Brief Emotional/Behav Assessment W/ Scoring Doc Per Standard Inst 08/15/2020 12:00:00 AM EST [facility] ([facility]) Results ID Date Data Source [id number] 07/24/2021 10:51:00 AM EST [facility] ([facility]) Name Value Range Interpretation Code Description Data Talisha rce(s) Supporting Document(s) MRI Brain W/O Contrast Laboratory test result [facility] ([facility]) ID Date Data Source [id number] 07/24/2021 10:50:00 AM EST [facility] ([facility]) Name Value Range Interpretation Code Description Data Talisha rce(s) Supporting Document(s) Cve Panel Laboratory test result [facility] ([facility]) Is patient fasting? N Triglycerides 106 mg/dL 35-160 [facility] ([facility]) Is patient fasting? N Cholesterol 230 mg/dL 131-200 Above high normal [facility] ([facility]) Is patient fasting? N Risk Factor 3.5 3.2-4.4 [facility] ([facility]) Is patient fasting? N LDL 145 mg/dL 65-175 [facility] ([facility]) Is patient fasting? N HDL 66 mg/dL 29-86 [facility] ([facility]) Is patient fasting? N LDL/HDL 2.20 1.47-3.22 [facility] ([facility]) Is patient fasting? N ID Date Data Source [id number] 07/24/2021 10:50:00 AM EST [facility] ([facility]) Name Value Range Interpretation Code Description Data Talisha rce(s) Supporting Document(s) Cobalamin (Vitamin B12) [Mass/volume] in Serum or Plasma 694 pg/mL 2 32-1245 [facility] ([facility]) Is patient fasting? N ID Date Data Source [id number] 07/24/2021 10:50:00 AM EST [facility] ([facility]) Name Value Range Interpretation Code Description Data Talisha rce(s) Supporting Document(s) Thyrotropin [Units/volume] in Serum or Plasma 2.17 uIU/mL 0.47-5.01 [facility] ([facility]) Is patient fasting? N Thyroxine (T4) free [Mass/volume] in Serum or Plasma 1.14 ng/dL 0.93- 1.70 [facility] ([facility]) Is patient fasting? N ID Date Data Source [id number] 07/24/2021 10:50:00 AM EST [facility] ([facility]) Name Value Range Interpretation Code Description Data Talisha rce(s) Supporting Document(s) Lyme IgG/IgM Ab Laboratory test result 0.00-0.90 [facility] Is patient fasting? N Lyme Disease Ab, Quant,IgM Laboratory test result 0.00-0.79 [facility] Is patient fasting? N ID Date Data Source [id number] 07/24/2021 10:50:00 AM EST [facility] ([facility]) Name Value Range Interpretation Code Description Data Talisha rce(s) Supporting Document(s) C reactive protein [Mass/volume] in Serum or Plasma by High sensitivity method 3.30 mg/L 1.00-3.00 Above high normal [facility] ([facility]) Is patient fasting? N ID Date Data Source [id number] 07/24/2021 10:50:00 AM EST [facility] ([facility]) Name Value Range Interpretation Code Description Data Talisha rce(s) Supporting Document(s) Sed Rate 7 mm/hr 0-20 [facility] ([facility]) Is patient fasting? N Sed Rate Reenter 7 [facility] ([facility]) Is patient fasting? N ID Date Data Source [id number] 07/24/2021 10:50:00 AM EST [facility] ([facility]) Name Value Range Interpretation Code Description Data Talisha rce(s) Supporting Document(s) Comprehensive Metabo Laboratory test result [facility] ([facility]) Is patient fasting? N Potassium 4.7 meq/L 3.6-5.0 [facility] ([facility]) Is patient fasting? N Sodium 139 meq/L 134-153 [facility] ([facility]) Is patient fasting? N Glucose 84 mg/dL 70-99 [facility] ([facility]) Is patient fasting? N Chloride 104 meq/L 98-107 [facility] ([facility]) Is patient fasting? N Co2 26 meq/L 22-30 [facility] ([facility]) Is patient fasting? N Creatinine 0.6 mg/dL 0.7-1.5 Below low normal [facility] ( [facility]) Is patient fasting? N BUN/Creat 17 8-27 [facility] ([facility]) Is patient fasting? N BUN 10 mg/dL 7-21 [facility] ([facility]) Is patient fasting? N Albumin 4.8 g/dL 3.9-5.0 [facility] ([facility]) Is patient fasting? N Total Protein 7.5 g/dL 6.3-8.2 [facility] ([facility]) Is patient fasting? N Globulin 2.7 GM/DL 2.4-3.2 [facility] ([facility]) Is patient fasting? N Calcium 10.6 mg/dL 8.4-10.2 Above high normal [facility] ([facility]) Is patient fasting? N A/G Ratio 1.8 0.8-2.0 [facility] ([facility]) Is patient fasting? N Alkaline Phos 45 U/L 38-126 [facility] ([facility]) Is patient fasting? N Total Bili 0.9 mg/dL 0.2-1.3 [facility] ([facility]) Is patient fasting? N Sgot/Ast 14 U/L 5-40 [facility] ([facility]) Is patient fasting? N Anion Gap 9.0 mmol/L 8.0-16.0 [facility] ([facility]) Is patient fasting? N SGPT/Alt 12 U/L 7-56 [facility] ([facility]) Is patient fasting? N Age 36 yrs [facility] ([facility]) Is patient fasting? N Afr Amer GFR Laboratory test result [facility] ([facility]) Is patient fasting? N Non-Aa GFR Laboratory test result [facility] ([facility]) Is patient fasting? N ID Date Data Source [id number] 07/24/2021 10:50:00 AM EST [facility] ([facility]) Name Value Range Interpretation Code Description Data Talisha rce(s) Supporting Document(s) CBC W/Automated Diff Laboratory test result [facility] ([facility]) Is patient fasting? N RBC 4.46 10^6/uL 4.20-5.40 [facility] ([facility]) Is patient fasting? N WBC 5.2 10^3/uL 4.2-11.0 [facility] ([facility]) Is patient fasting? N MCV 89.9 fL 81.0-101 [facility] ([facility]) Is patient fasting? N Hemoglobin 13.4 g/dL 12.0-16.0 [facility] ([facility]) Is patient fasting? N Hematocrit 40.1 % 37.0-47.0 [facility] ([facility]) Is patient fasting? N MCH 30.0 pg 27.0-34.0 [facility] ([facility]) Is patient fasting? N MCHC 33.4 g/dL 31.0-36.0 [facility] ([facility]) Is patient fasting? N Platelets 365 10^3/uL 150-450 [facility] ([facility]) Is patient fasting? N RDW 12.8 % 11.5-14.5 [facility] ([facility]) Is patient fasting? N MPV 9.4 fL 7.4-10.4 [facility] ([facility]) Is patient fasting? N Lymph 32.6 % 25.0-40.0 [facility] ([facility]) Is patient fasting? N Neut 55.8 % 37.0-80.0 [facility] ([facility]) Is patient fasting? N Eos 2.1 % 0.0-7.0 [facility] ([facility]) Is patient fasting? N [place] 8.3 % 3.0-8.0 Above high normal [facility] ([facility]) Is patient fasting? N %Ig 0.2 % 0.0-0.0 Above high normal [facility] ([facility]) Is patient fasting? N Baso 1.0 % 0.0-2.5 [facility] ([facility]) Is patient fasting? N #Lymph 1.70 10^3/uL 0.60-3.40 [facility] ([facility]) Is patient fasting? N #Neut 2.91 10^3/uL 2.00-6.90 [facility] ([facility]) Is patient fasting? N %NRBC 0.0 % 0.0-0.0 [facility] ([facility]) Is patient fasting? N #Eos 0.11 10^3/uL 0.00-0.70 [facility] ([facility]) Is patient fasting? N #[place] 0.43 10^3/uL 0.00-0.90 [facility] ([facility]) Is patient fasting? N #Baso 0.05 10^3/uL 0.00-0.20 [facility] ([facility]) Is patient fasting? N #Ig 0.01 10^3/uL 0.00-0.10 [facility] ([facility]) Is patient fasting? N Manual Diff Laboratory test result M [facility] ([facility]) Is patient fasting? N #NRBC 0.00 10^3/uL 0.00-0.00 [facility] ([facility]) Is patient fasting? N RBC Morph Laboratory test result [facility] ([facility]) Is patient fasting? N ID Date Data Source [id number] 07/25/2021 05:25:00 PM [facility] Name Value Range Interpretation Code Description Data Talisha rce(s) Supporting Document(s) Borrelia burgdorferi IgG+IgM Ab [Units/volume] in Serum <0.91 ISR 0. 00-0.90 [facility] Negative <0.91 Equivocal 0.91 - 1.09 Positive >1.09 Borrelia burgdorferi IgM Ab [Units/volume] in Serum by Immun oassay <0.80 index 0.00-0.79 [facility] Negative <0.80 Equivocal 0.80 - 1.19 Positive >1.19 IgM levels may peak at 3-6 weeks post infection, then gradually decline. ID Date Data Source [id number] 07/24/2021 01:16:00 PM [facility] Name Value Range Interpretation Code Description Data Talisha rce(s) Supporting Document(s) Cobalamin (Vitamin B12) [Mass/volume] in Serum or Plasma 694 PG/ML 232 - 1245 [facility] ID Date Data Source [id number] 07/24/2021 01:16:00 PM [facility] Value Range Interpretation Code Description Data Talisha rce(s) Supporting Document(s) Thyroxine (T4) free index in Serum or Plasma by calculation 1.14 NG/DL 0.93 - 1.70 [facility] ID Date Data Source [id number] 07/24/2021 01:16:00 PM [facility] Name Value Range Interpretation Code Description Data Talisha rce(s) Supporting Document(s) Thyrotropin [Units/volume] in Serum or Plasma by Detec tion limit <= 0.05 mIU/L 2.17 uIU/mL 0.47 - 5.01 [facility] ID Date Data Source [id number] 07/24/2021 01:07:00 PM [facility] Name Value Range Interpretation Code Description Data Talisha rce(s) Supporting Document(s) C reactive protein [Mass/volume] in Serum or Plasma by High sensitivity method 3.30 MG/L 1.00 - 3.00 H [facility] CDC/S HS-CRP CUT-OFF: RELATIVE RISK: <1.0 mg/L Low 1.0 - 3.0 mg/L Average >3.0 mg/L High Optimally, the average of HS-CRP results repeated two weeks apart should be used for risk assessment. ID Date Data Source [id number] 07/24/2021 01:07:00 PM [facility] Name Value Range Interpretation Code Description Data Talisha rce(s) Supporting Document(s) CVE PANEL [facility] al LIPID PANEL Cholesterol [Mass/volume] in Serum or Plasma 230 MG/DL 131 - 200 H [facility] Deprecated Triglyceride [Mass/volume] in Serum or Plasma 106 MG/DL 3 5 - 160 [facility] HDL 66 MG/DL 29 - 86 [facility] Cholesterol in LDL [Mass/volume] in Serum or Plasma by Direc t assay 145 mg/dL 65 - 175 [facility] Cholesterol.total/Cholesterol in HDL [Mass Ratio] in Serum o r Plasma 3.5 3.2 - 4.4 [facility] LDL/HDL 2.20 1.47 - 3.22 [facility] ital CVE RISK CHOL/HDL LDL/HDLMEN: 1/2 AVERAGE 3.43 1.00 AVERAGE 4.97 3.55 2X AVERAGE 9.55 6.25 3X AVERAGE 23.99 7.99WOMEN: 1/2 AVERAGE 3.27 1.47 AVERAGE 4.44 3.22 2X AVERAGE 7.05 5.03 3X AVERAGE 11.04 6.14 ID Date Data Source [id number] 07/24/2021 01:07:00 PM EST [facility] Name Value Range Interpretation Code Description Data Talisha rce(s) Supporting Document(s) COMPREHENSIVE METABOLIC PANEL [facility] COMPREHENSIVE METABOLIC PANEL Sodium [Moles/volume] in Serum or Plasma 139 mEq/L 134 - 153 [facility] Potassium [Moles/volume] in Serum or Plasma 4.7 mEq/L 3.6 - 5.0 [facility] Chloride [Moles/volume] in Serum or Plasma 104 mEq/L 98 - 107 [facility] Carbon dioxide, total [Moles/volume] in Serum or Plasma 26 MEQ/L 22 - 30 [facility] Glucose [Mass/volume] in Serum or Plasma 84 MG/DL 70 - 99 [facility] BUN 10 MG/DL 7 - 21 [facility] Creatinine [Mass/volume] in Serum or Plasma 0.6 MG/DL 0.7 - 1.5 L [facility] BUN/CREAT 17 8 - 27 [facility] Protein [Mass/volume] in Serum or Plasma 7.5 G/DL 6.3 - 8.2 [facility] Albumin [Mass/volume] in Serum or Plasma 4.8 G/DL 3.9 - 5.0 [facility] Globulin [Mass/volume] in Serum by calculation 2.7 GM/DL 2.4 - 3.2 [facility] A/G RATIO 1.8 0.8 - 2.0 [facility] Calcium [Mass/volume] in Serum or Plasma 10.6 MG/DL 8.4 - 10.2 H [facility] Bilirubin.total [Mass/volume] in Serum or Plasma 0.9 MG/DL 0.2 - 1.3 [facility] Alkaline phosphatase [Enzymatic activity/volume] in Serum or Plasma 45 U/L 38 - 126 [facility] Aspartate aminotransferase [Enzymatic activity/volume] in Serum or Plasma 14 U/L 5 - 40 [facility] Alanine aminotransferase [Enzymatic activity/volume] in Seru m or Plasma 12 U/L 7 - 56 [facility] Anion gap 3 in Serum or Plasma 9.0 mmol/L 8.0 - 16.0 [facility] AGE 36 yrs [facility] NON-AA GFR >60 mL/min [facility]osp ital AFR AMER GFR >60 mL/min [facility] Ho spital Male GFR In [...] >32 mL/min Normal ID Date Data Source [id number] 07/24/2021 12:45:00 PM [facility] Name Value Range Interpretation Code Description Data Tailsha rce(s) Supporting Document(s) Erythrocyte sedimentation rate by Westergren method 7 mm/hr 0 - 20 [facility] SED RATE REENTER 7 [facility] ID Date Data Source [id number] 07/24/2021 12:26:00 PM EST [facility] Name Value Range Interpretation Code Description Data Talisha rce(s) Supporting Document(s) CBC W/AUTOMATED DIFF [facility] COMPLETE BLOOD COUNT Leukocytes [#/volume] in Blood by Automated count 5.2 10^3/uL 4.2 - 1 1.0 [facility] Erythrocytes [#/volume] in Blood by Automated count 4.46 10^6/uL 4. 20 - 5.40 [facility] Hemoglobin [Mass/volume] in Blood 13.4 g/dL 12.0 - 16.0 [facility] Hematocrit [Volume Fraction] of Blood by Automated count 40.1 % 3 7.0 - 47.0 [facility] Erythrocyte mean corpuscular volume [Entitic volume] by Auto mated count 89.9 fL 81.0 - 101 [facility] Erythrocyte mean corpuscular hemoglobin [Entitic mass] by Automated count 30.0 pg 27.0 - 34.0 [facility] Erythrocyte mean corpuscular hemoglobin concentration [Mass/volume] by Automated count 33.4 g/dL 31.0 - 36.0 [facility] Erythrocyte distribution width [Ratio] by Automated count 12.8 % 11.5 - 14.5 [facility] Platelets [#/volume] in Blood by Automated count 365 10^3/uL 150 - 45 0 [facility] Platelet mean volume [Entitic volume] in Blood by Automated count 9.4 fL 7.4 - 10.4 [facility] Neutrophils/100 leukocytes in Blood by Automated count 55.8 % 37. 0 - 80.0 [facility] Lymphocytes/100 leukocytes in Blood by Manual count 32.6 % 25.0 - 40.0 [facility] Monocytes/100 leukocytes in Blood by Automated count 8.3 % 3.0 - 8.0 H [facility] Eosinophils/100 leukocytes in Blood by Automated count 2.1 % 0.0 - 7.0 [facility] Basophils/100 leukocytes in Blood by Automated count 1.0 % 0.0 - 2.5 [facility] %IG 0.2 % 0.0 - 0.0 [facility] 0.0 % 0.0 - 0.0 [facility] Neutrophils [#/volume] in Blood by Automated count 2.91 10^3/uL 2.00 - 6.90 [facility] Lymphocytes [#/volume] in Blood by Automated count 1.70 10^3/uL 0.60 - 3.40 [facility] Monocytes [#/volume] in Blood by Automated count 0.43 10^3/uL 0.00 - 0.90 [facility] Eosinophils [#/volume] in Blood by Automated count 0.11 10^3/uL 0.00 - 0.70 [facility] Basophils [#/volume] in Blood by Automated count 0.05 10^3/uL 0.00 - 0.20 [facility] #IG 0.01 10^3/uL 0.00 - 0.10 [facility] #NRBC 0.00 10^3/uL 0.00 - 0.00 [facility] MANUAL DIFF NOT INDICATED [facility] RBC MORPH NOT INDICATED [facility] ID Date Data Source [id number] 07/24/2021 10:50:00 AM EST [facility] ([facility]) Name Value Range Interpretation Code Description Data Talisha rce(s) Supporting Document(s) Erythrocyte sedimentation rate by Westergren method Laboratory test result [facility] ([facility]) C reactive protein [Mass/volume] in Serum or Plasma by High sensitivity method Laboratory test result [facility] ([facility]) ID Date Data Source [id number] 09/29/2020 10:24:00 AM [facility] [address] [place] [address] PHONE: [phone] FAX: [phone] Name .................. : YESSICA RAMSAY Winston Acct Number.................. : [id number] ROOM. ................. : Number ................... : [id number] Stay type ............. : O/P Discharge Date......... ... : 09/07/20 Admit Date ......... : 09/07/20 Admit Phys .................... : KLINE HARD Date of ....... : 1985 Family Phys ................... : [employer] HARD Phone .................. : [phone] Age ................................ : 35 Film# .................. .:[id number] Sex ................................. : F Unsigned transcriptions are preliminary reports and do not represent a medical or legal document CT ABD & PELV W/O ORAL W/[place] [id number] COMPLETE:09/07/20 12:19 KJE 1653 (REASON FOR ABDOMEN: [...] By Chayito Mendoza MD , 09/11/20 09:31, KGG Transcribe Initials: DEX , Transcribe Date: 09/09/20 03:48, Dictation Date: Copy for: [address] [place] [address] [address] [place] [address] PHONE: [phone] FAX: [phone] Name .................. : KATHYBRYONABDIEL DEVENDRA Montero Acct Number.................. : [id number] ROOM. ................. : MR Number ................... : [id number] Stay type ............. : O/P Discharge Date......... ... : 09/07/20 Admit Date ......... : 09/07/20 Admit Phys .................... : KLINE HARD Date of ....... : 1985 Family Phys ................... : KLINE HARD Phone .................. : [phone] Age ................................ : 35 Film# .................. .:[id number] Sex ................................. 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 Electronically Reviewed and Signed By Chayito Mendoza MD , 09/29/20 10:24, KGG Transcribe Initials: DZ , Transcribe Date: 09/28/20 21:36, Dictation Date: Copy for: 710 MED REC Page 2 of 2 Name Value Range Interpretation Code Description Data Talisha rce(s) Supporting Document(s) ID Date Data Source [id number] 08/15/2020 10:47:00 AM EST [facility] ([facility]) Name Value Range Interpretation Code Description Data Talisha rce(s) Supporting Document(s) Thyroxine (T4) free [Mass/volume] in Serum or Plasma 1.07 ng/dL 0.93- 1.70 [facility] ([facility]) Is patient fasting? Y Thyrotropin [Units/volume] in Serum or Plasma 2.21 uIU/mL 0.47-5.01 [facility] ([facility]) Is patient fasting? Y ID Date Data Source [id number] 08/15/2020 10:47:00 AM EST [facility] ([facility]) Name Value Range Interpretation Code Description Data Talisha rce(s) Supporting Document(s) Comprehensive Metabo Laboratory test result [facility] ([facility]) Is patient fasting? Y Sodium 137 meq/L 134-153 [facility] Is patient fasting? Y Co2 27 meq/L 22-30 [facility] Is patient fasting? Y Potassium 4.8 meq/L 3.6-5.0 [facility] Is patient fasting? Y Chloride 102 meq/L 98-107 [facility] Is patient fasting? Y BUN 13 mg/dL 7-21 [facility] Is patient fasting? Y Glucose 85 mg/dL 65-110 [facility] Is patient fasting? Y Creatinine 0.7 mg/dL 0.7-1.5 [facility] ([facility]) Is patient fasting? Y Total Protein 7.3 g/dL 6.3-8.2 [facility] ([facility]) Is patient fasting? Y BUN/Creat 19 8-27 [facility] Is patient fasting? Y Albumin 4.7 g/dL 3.9-5.0 [facility] Is patient fasting? Y Globulin [Mass/volume] in Serum by calculation 2.6 GM/DL 2.4-3.2 [facility] ([facility]) Is patient fasting? Y A/G Ratio 1.8 0.8-2.0 [facility] Is patient fasting? Y Total Bili 0.9 mg/dL 0.2-1.3 [facility] ([facility]) Is patient fasting? Y Alkaline Phos 36 U/L 38-126 [facility] Is [facility] fasting? Y Calcium 10.5 mg/dL 8.4-10.2 [facility] ([facility]) Is patient fasting? Y SGPT/Alt 10 U/L 7-56 [facility] ([facility]) Is patient fasting? Y Sgot/Ast 14 U/L 5-40 [facility] ([facility]) Is patient fasting? Y Non-Aa GFR Laboratory test result [facility] ([facility]) Is patient fasting? Y Age 35 yrs [facility] ([facility]) Is patient fasting? Y Anion gap in Serum or Plasma 8.0 mmol/L 8.0-16.0 [facility] ([facility]) Is patient fasting? Y Afr Amer GFR Laboratory test result [facility] NT ([facility]) Is patient fasting? Y ID Date Data Source [id number] 08/15/2020 10:47:00 AM EST [facility] ([facility]) Name Value Range Interpretation Code Description Data Talisha rce(s) Supporting Document(s) Folate [Mass/volume] in Serum or Plasma Laboratory test result 4.4-31 .0 [facility] ([facility]) Is patient fasting? Y Cobalamin (Vitamin B12) [Mass/volume] in Serum or Plasma 861 pg/mL 2 32-1245 [facility] ([facility]) Is patient fasting? Y ID Date Data Source [id number] 08/15/2020 10:47:00 AM EST [facility] ([facility]) Name Value Range Interpretation Code Description Data Talisha rce(s) Supporting Document(s) Cve Panel Laboratory test result [facility] ([facility]) Is patient fasting? Y Cholesterol 210 mg/dL 131-200 [facility] ([facility]) Is patient fasting? Y HDL 70 mg/dL 29-86 [facility] ([facility]) Is patient fasting? Y Triglycerides 94 mg/dL 35-160 [facility] ([facility]) Is patient fasting? Y Risk Factor 3.0 3.2-4.4 [facility] ([facility]) Is patient fasting? Y LDL/HDL 1.87 1.47-3.22 [facility] Is patient fasting? Y LDL 131 mg/dL 65-175 [facility] Is patient fasting? Y ID Date Data Source [id number] 08/15/2020 10:47:00 AM EST [facility] ([facility]) Name Value Range Interpretation Code Description Data Talisha rce(s) Supporting Document(s) CBC W/Automated Diff Laboratory test result [facility] ([facility]) Is patient fasting? Y RBC 4.38 10^6/uL 4.20-5.40 [facility] ([facility]) Is patient fasting? Y Hemoglobin 13.3 g/dL 12.0-16.0 [facility] ([facility]) Is patient fasting? Y WBC 5.9 10^3/uL 4.2-11.0 [facility] ([facility]) Is patient fasting? Y Hematocrit 40.1 % 37.0-47.0 [facility] ([facility]) Is patient fasting? Y MCV 91.6 fL 81.0-101 [facility] Is patient fasting? Y Erythrocyte distribution width [Ratio] by Automated count 13.2 % 11.5-14.5 [facility] ([facility]) Is patient fasting? Y MCHC 33.2 g/dL 31.0-36.0 [facility] Is patient fasting? Y MCH 30.4 pg 27.0-34.0 [facility] ([facility] Is patient fasting? Y Neut 61.0 % 37.0-80.0 [facility] ([facility]) Is patient fasting? Y Platelet mean volume [Entitic volume] in Blood by [place]ana 9.7 fL 7.4-10.4 [facility] ([facility]) Is patient fasting? Y Platelets 341 10^3/uL 150-450 [facility] ([facility]) Is patient fasting? Y Lymph 28.2 % 25.0-40.0 [facility] Is patient fasting? Y [place] 6.6 % 3.0-8.0 [facility] [place] Is [facility] fasting? Y Eos 2.6 % 0.0-7.0 [facility] Is patient fasting? Y Baso 1.4 % 0.0-2.5 [facility] Is patient fasting? Y %Ig 0.2 % 0.0-0.0 [facility] Is patient fasting? Y #Lymph 1.66 10^3/uL 0.60-3.40 [facility] Is patient fasting? Y #Neut 3.59 10^3/uL 2.00-6.90 [facility]) Is patient fasting? Y %NRBC 0.0 % 0.0-0.0 [facility] Is patient fasting? Y #Eos 0.15 10^3/uL 0.00-0.70 [facility] Is patient fasting? Y #[place] 0.39 10^3/uL 0.00-0.90 [facility] ([facility] Is patient fasting? Y #Baso 0.08 10^3/uL 0.00-0.20 [facility] Is patient fasting? Y #Ig 0.01 10^3/uL 0.00-0.10 [facility] Is patient fasting? Y #NRBC 0.00 10^3/uL 0.00-0.00 [facility] Is patient fasting? Y Manual Diff Laboratory test result [facility] Is patient fasting? Y RBC Morph Laboratory test result [facility]) Is patient fasting? Y ID Date Data Source [id number] 08/15/2020 10:47:00 AM EST [facility] ([facility]) Name Value Range Interpretation Code Description Data Talisha rce(s) Supporting Document(s) Thyroxine (T4) free [Mass/volume] in Serum or Plasma 1.07 ng/dL 0.93- 1.70 [facility] ([facility]) Is patient fasting? Y Thyrotropin [Units/volume] in Serum or Plasma 2.21 uIU/mL 0.47-5.01 [facility] ([facility]) Is patient fasting? Y ID Date Data Source [id number] 08/15/2020 10:47:00 AM EST [facility] ([facility]) Name Value Range Interpretation Code Description Data Talisha rce(s) Supporting Document(s) Sodium 137 meq/L 134-153 [facility] ([facility]) Is patient fasting? Y Comprehensive Metabo Laboratory test result [facility] ([facility]) Is patient fasting? Y Chloride 102 meq/L 98-107 [facility] ([facility]) Is patient fasting? Y Potassium 4.8 meq/L 3.6-5.0 [facility] ([facility]) Is patient fasting? Y Co2 27 meq/L 22-30 [facility] ([facility]) Is patient fasting? Y BUN 13 mg/dL 7-21 [facility] ([facility]) Is patient fasting? Y Glucose 85 mg/dL 65-110 [facility] ([facility]) Is patient fasting? Y Creatinine 0.7 mg/dL 0.7-1.5 [facility] ([facility]) Is patient fasting? Y Total Protein 7.3 g/dL 6.3-8.2 [facility] ([facility]) Is patient fasting? Y Albumin 4.7 g/dL 3.9-5.0 [facility] ([facility]) Is patient fasting? Y BUN/Creat 19 8-27 [facility] ([facility]) Is patient fasting? Y Globulin 2.6 GM/DL 2.4-3.2 [facility] ([facility]) Is patient fasting? Y A/G Ratio 1.8 0.8-2.0 [facility] ([facility]) Is patient fasting? Y Calcium 10.5 mg/dL 8.4-10.2 Above high normal [facility] ([facility]) Is patient fasting? Y Total Bili 0.9 mg/dL 0.2-1.3 [facility] ([facility]) Is patient fasting? Y Alkaline Phos 36 U/L 38-126 Below low normal [facility] ([facility]) Is patient fasting? Y Sgot/Ast 14 U/L 5-40 [facility] ([facility]) Is patient fasting? Y Age 35 yrs [facility] ([facility]) Is patient fasting? Y Anion Gap 8.0 mmol/L 8.0-16.0 [facility] ([facility]) Is patient fasting? Y SGPT/Alt 10 U/L 7-56 [facility] ([facility]) Is patient fasting? Y Non-Aa GFR Laboratory test result [facility] ([facility]) Is patient fasting? Y Afr Amer GFR Laboratory test result [facility] ([facility]) Is patient fasting? Y ID Date Data Source [id number] 08/15/2020 10:47:00 AM EST [facility] ([facility]) Name Value Range Interpretation Code Description Data Talisha rce(s) Supporting Document(s) Cobalamin (Vitamin B12) [Mass/volume] in Serum or Plasma 861 pg/mL 2 32-1245 [facility] ([facility]) Is patient fasting? Y Folate [Mass/volume] in Serum or Plasma Laboratory test result 4.4-31 .0 [facility] ([facility]) Is patient fasting? Y ID Date Data Source [id number] 08/15/2020 10:47:00 AM EST [facility] ([facility]) Name Value Range Interpretation Code Description Data Talisha rce(s) Supporting Document(s) Cve Panel Laboratory test result [facility] ([facility]) Is patient fasting? Y Cholesterol 210 mg/dL 131-200 Above high normal [facility] ([facility]) Is patient fasting? Y Triglycerides 94 mg/dL 35-160 [facility] ([facility]) Is patient fasting? Y LDL 131 mg/dL 65-175 [facility] ([facility]) Is patient fasting? Y HDL 70 mg/dL 29-86 [facility] ([facility]) Is patient fasting? Y LDL/HDL 1.87 1.47-3.22 [facility] ([facility]) Is patient fasting? Y Risk Factor 3.0 3.2-4.4 Below low normal [facility] ([facility]) Is patient fasting? Y ID Date Data Source [id number] 08/15/2020 10:47:00 AM EST [facility] ([facility]) Name Value Range Interpretation Code Description Data Talisha rce(s) Supporting Document(s) Calcidiol [Mass/volume] in Serum or Plasma 40 ng/mL [facility] ([facility]) Is patient fasting? Y ID Date Data Source [id number] 08/15/2020 10:47:00 AM EST [facility] ([facility]) Name Value Range Interpretation Code Description Data Talisha rce(s) Supporting Document(s) WBC 5.9 10^3/uL 4.2-11.0 [facility] ([facility]) Is patient fasting? Y CBC W/Automated Diff Laboratory test result [facility] ([facility]) Is patient fasting? Y Hemoglobin 13.3 g/dL 12.0-16.0 [facility] ([facility]) Is patient fasting? Y Hematocrit 40.1 % 37.0-47.0 [facility] ([facility]) Is patient fasting? Y RBC 4.38 10^6/uL 4.20-5.40 [facility] ([facility]) Is patient fasting? Y MCHC 33.2 g/dL 31.0-36.0 [facility] ([facility]) Is patient fasting? Y MCV 91.6 fL 81.0-101 [facility] ([facility]) Is patient fasting? Y MCH 30.4 pg 27.0-34.0 [facility] ([facility]) Is patient fasting? Y RDW 13.2 % 11.5-14.5 [facility] ([facility]) Is patient fasting? Y Platelets 341 10^3/uL 150-450 [facility] ([facility]) Is patient fasting? Y Lymph 28.2 % 25.0-40.0 [facility] ([facility]) Is patient fasting? Y Neut 61.0 % 37.0-80.0 [facility] ([facility]) Is patient fasting? Y MPV 9.7 fL 7.4-10.4 [facility] ([facility]) Is patient fasting? Y Eos 2.6 % 0.0-7.0 [facility] ([facility]) Is patient fasting? Y Baso 1.4 % 0.0-2.5 [facility] ([facility]) Is patient fasting? Y [place] 6.6 % 3.0-8.0 [facility] ([facility]) Is patient fasting? Y %Ig 0.2 % 0.0-0.0 Above high normal [facility] ([facility]) Is patient fasting? Y #Neut 3.59 10^3/uL 2.00-6.90 [facility] ([facility]) Is patient fasting? Y %NRBC 0.0 % 0.0-0.0 [facility] ([facility]) Is patient fasting? Y #Eos 0.15 10^3/uL 0.00-0.70 [facility] ([facility]) Is patient fasting? Y #Lymph 1.66 10^3/uL 0.60-3.40 [facility] ([facility]) Is patient fasting? Y #[place] 0.39 10^3/uL 0.00-0.90 [facility] ([facility]) Is patient fasting? Y #Ig 0.01 10^3/uL 0.00-0.10 [facility] ([facility]) Is patient fasting? Y #Baso 0.08 10^3/uL 0.00-0.20 [facility] ([facility]) Is patient fasting? Y #NRBC 0.00 10^3/uL 0.00-0.00 [facility] ([facility]) Is patient fasting? Y Manual Diff Laboratory test result [facility] ([facility]) Is patient fasting? Y RBC Morph Laboratory test result [facility] ([facility]) Is patient fasting? Y ID Date Data Source [id number] 08/15/2020 09:47:00 PM EST [facility] Name Value Range Interpretation Code Description Data Talisha rce(s) Supporting Document(s) Folate [Mass/volume] in Serum or Plasma >20.0 NG/ML 4.4 - 31.0 [facility] ID Date Data Source [id number] 08/15/2020 04:48:00 PM [facility] Name Value Range Interpretation Code Description Data Talisha rce(s) Supporting Document(s) Thyrotropin [Units/volume] in Serum or Plasma by Detec tion limit <= 0.05 mIU/L 2.21 uIU/mL 0.47 - 5.01 [facility] ID Date Data Source [id number] 08/15/2020 04:48:00 PM [facility] Name Value Range Interpretation Code Description Data Talisha rce(s) Supporting Document(s) Thyroxine (T4) free index in Serum or Plasma by calculation 1.07 NG/DL 0.93 - 1.70 [facility] ID Date Data Source [id number] 08/15/2020 04:48:00 PM [facility] Name Value Range Interpretation Code Description Data Talisha rce(s) Supporting Document(s) Cobalamin (Vitamin B12) [Mass/volume] in Serum or Plasma 861 PG/ML 232 - 1245 [facility] ID Date Data Source [id number] 08/15/2020 04:48:00 PM [facility] Name Value Range Interpretation Code Description Data Talisha rce(s) Supporting Document(s) Calcidiol [Moles/volume] in Serum or Plasma 40 NG/ML [facility] VITAMIN-D(2 5HYDROXY) Deficiency: <=20 ng/ml Insufficiency: 21-29 ng/ml Preferred level: => 30 ng/ml ID Date Data Source [id number] 08/15/2020 04:12:00 PM [facility] Value Range Interpretation Code Description Data Talisha rce(s) Supporting Document(s) COMPREHENSIVE METABOLIC PANEL [facility] COMPREHENSIVE METABOLIC PANEL Sodium [Moles/volume] in Serum or Plasma 137 mEq/L 134 - 153 [facility] Potassium [Moles/volume] in Serum or Plasma 4.8 mEq/L 3.6 - 5.0 [facility] Chloride [Moles/volume] in Serum or Plasma 102 mEq/L 98 - 107 [facility] Carbon dioxide, total [Moles/volume] in Serum or Plasma 27 MEQ/L 22 - 30 [facility] Glucose [Mass/volume] in Serum or Plasma 85 MG/DL 65 - 110 [facility] BUN 13 MG/DL 7 - 21 [facility] Creatinine [Mass/volume] in Serum or Plasma 0.7 MG/DL 0.7 - 1.5 [facility] BUN/CREAT 19 8 - 27 [facility] al Protein [Mass/volume] in Serum or Plasma 7.3 G/DL 6.3 - 8.2 [facility] Albumin [Mass/volume] in Serum or Plasma 4.7 G/DL 3.9 - 5.0 [facility] Globulin [Mass/volume] in Serum by calculation 2.6 GM/DL 2.4 - 3.2 [facility] A/G RATIO 1.8 0.8 - 2.0 [facility] Calcium [Mass/volume] in Serum or Plasma 10.5 MG/DL 8.4 - 10.2 H [facility] Bilirubin.total [Mass/volume] in Serum or Plasma 0.9 MG/DL 0.2 - 1.3 [facility] Alkaline phosphatase [Enzymatic activity/volume] in Serum or Plasma 36 U/L 38 - 126 L [facility] Aspartate aminotransferase [Enzymatic activity/volume] in Serum or Plasma 14 U/L 5 - 40 [facility] Alanine aminotransferase [Enzymatic activity/volume] in Seru m or Plasma 10 U/L 7 - 56 [facility] Anion gap 3 in Serum or Plasma 8.0 mmol/L 8.0 - 16.0 [facility] AGE 35 yrs [facility] NON-AA GFR >60 mL/min [facility] ital AFR AMER GFR >60 mL/min [facility] Male GFR In [...] >32 mL/min Normal ID Date Data Source [id number] 08/15/2020 04:12:00 PM EST [facility] Name Value Range Interpretation Code Description Data Talisha e(s) Supporting Document(s) [facility] Cholesterol [Mass/volume] in Serum or Plasma 210 MG/DL 131 - 200 H [facility] Deprecated Triglyceride [Mass/volume] in Serum or Plasma 94 MG/DL 3 5 - 160 [facility] HDL 70 MG/DL 29 - 86 [facility] Cholesterol in LDL [Mass/volume] in Serum or Plasma by Direc t assay 131 mg/dL 65 - 175 [facility] Cholesterol.total/Cholesterol in HDL [Mass Ratio] in Serum o r Plasma 3.0 3.2 - 4.4 L [facility] LDL/HDL 1.87 1.47 - 3.22 [facility] ital CVE RISK CHOL/HDL LDL/HDLMEN: 1/2 AVERAGE 3.43 1.00 AVERAGE 4.97 3.55 2X AVERAGE 9.55 6.25 3X AVERAGE 23.99 7.99WOMEN: 1/2 AVERAGE 3.27 1.47 AVERAGE 4.44 3.22 2X AVERAGE 7.05 5.03 3X AVERAGE 11.04 6.14 ID Date Data Source [id number] 08/15/2020 03:37:00 PM EST [facility] Name Value Range Interpretation Code Description Data Talisha rce(s) Supporting Document(s) CBC W/AUTOMATED DIFF [facility] COMPLETE BLOOD COUNT Leukocytes [#/volume] in Blood by Automated count 5.9 10^3/uL 4.2 - 1 1.0 [facility] Erythrocytes [#/volume] in Blood by Automated count 4.38 10^6/uL 4. 20 - 5.40 [facility] Hemoglobin [Mass/volume] in Blood 13.3 g/dL 12.0 - 16.0 [facility] Hematocrit [Volume Fraction] of Blood by Automated count 40.1 % 3 7.0 - 47.0 [facility] Erythrocyte mean corpuscular volume [Entitic volume] by Auto mated count 91.6 fL 81.0 - 101 [facility] Erythrocyte mean corpuscular hemoglobin [Entitic mass] by Automated count 30.4 pg 27.0 - 34.0 [facility] Erythrocyte mean corpuscular hemoglobin concentration [Mass/volume] by Automated count 33.2 g/dL 31.0 - 36.0 [facility] Erythrocyte distribution width [Ratio] by Automated count 13.2 % 11.5 - 14.5 [facility] Platelets [#/volume] in Blood by Automated count 341 10^3/uL 150 - 45 0 [facility] Platelet mean volume [Entitic volume] in Blood by Automated count 9.7 fL 7.4 - 10.4 [facility] Neutrophils/100 leukocytes in Blood by Automated count 61.0 % 37. 0 - 80.0 [facility] Lymphocytes/100 leukocytes in Blood by Manual count 28.2 % 25.0 - 40.0 [facility] Monocytes/100 leukocytes in Blood by Automated count 6.6 % 3.0 - 8.0 [facility] Eosinophils/100 leukocytes in Blood by Automated count 2.6 % 0.0 - 7.0 [facility] Basophils/100 leukocytes in Blood by Automated count 1.4 % 0.0 - 2.5 [facility] %IG 0.2 % 0.0 - 0.0 H [facility] al %NRBC 0.0 % 0.0 - 0.0 [facility] al Neutrophils [#/volume] in Blood by Automated count 3.59 10^3/uL 2.00 - 6.90 [facility] Lymphocytes [#/volume] in Blood by Automated count 1.66 10^3/uL 0.60 - 3.40 [facility] Monocytes [#/volume] in Blood by Automated count 0.39 10^3/uL 0.00 - 0.90 [facility] Eosinophils [#/volume] in Blood by Automated count 0.15 10^3/uL 0.00 - 0.70 [facility] Basophils [#/volume] in Blood by Automated count 0.08 10^3/uL 0.00 - 0.20 [facility] #IG 0.01 10^3/uL 0.00 - 0.10 [facility] #NRBC 0.00 10^3/uL 0.00 - 0.00 [facility] MANUAL DIFF NOT INDICATED [facility] RBC MORPH NOT INDICATED [facility] spital Procedure Social History Code Duration Value Status Description Data Source(s ) Smoking 10/09/2020 12:00:00 AM EST Patient has never smoked co mpleted Patient has never smoked [facility] [facility]) Vital Signs ID Date Data Source UNK Name Value Range Interpretation Code Description Data Source(s) Systolic blood pressure 112 mm[Hg] 112 mm[Hg] [facility] ([facility]) Heart rate 66 /min 66 /min [facility] Respiratory rate 16 /min 16 /min [facility] ( [facility]) Body temperature 97.2 [degF] 97.2 [degF] [facility] ([facility]) Oxygen saturation in Arterial blood by Pulse oximetry 98 % 98 % [facility] ([facility]) Diastolic blood pressure 78 mm[Hg] 78 mm[Hg] [facility] ([facility]) Body mass index (BMI) [Ratio] 22.2 kg/m2 22.2 k g/m2 [facility] ([facility]) Body surface area Derived from formula 1.70 m2 1.70 m2 [facility] ([facility]) Body weight 137.38 [lb_av] 137.38 [lb_av] [facility] T ([facility]) Body weight 62.313 kg 62.313 kg [facility] ([facility]) Body height 66 [in_i] 66 [in_i] [facility] ([facility]) 5'6" Body weight 133.00 [lb_av] 133.00 [lb_av] [facility] T ([facility]) Systolic blood pressure--standing 114 mm[Hg] 11 4 mm[Hg] [facility] [place], adult cuff/Ra; HR: 93 bpm Diastolic blood pressure--standing 76 mm[Hg] 7 6 mm[Hg] [facility] ([facility]) [employer], adult cuff/Ra; HR: 93 bpm Body height 66 [in_i] 66 [in_i] [facility] ([facility]) 5'6" Systolic blood pressure--sitting 124 mm[Hg] 124 mm[Hg] [facility] ([facility]) [place], adult cuff/Ra; HR: 83 bpm Diastolic blood pressure--sitting 73 mm[Hg] 73 mm[Hg] [facility] ([facility]) [place], adult cuff/Ra; HR: 83 bpm Systolic blood pressure--supine 122 mm[Hg] 122 mm[Hg] [facility] ([facility]) [place], adult cuff/Ra; HR: 85 bpm Heart rate 83 /min 83 /min [facility] ([facility]) Diastolic blood pressure--supine 72 mm[Hg] 72 mm[Hg] [facility] ([facility]) [place], adult cuff/Ra; HR: 85 bpm Body mass index (BMI) [Ratio] 21.5 kg/m2 21.5 k g/m2 [facility] ([facility]) Diastolic blood pressure 60 mm[Hg] 60 mm[Hg] [facility] ([facility]) Oxygen saturation in Arterial blood by Pulse oximetry 99 % 99 % [facility] ([facility]) Body temperature 97.2 [degF] 97.2 [degF] [facility] ([facility]) Respiratory rate 18 /min 18 /min [facility] ( [facility]) Heart rate 84 /min 84 /min [facility] ([facility]) Body height 66 [in_i] 66 [in_i] [facility] ([facility]) 5'6" Body weight 131.00 [lb_av] 131.00 [lb_av] [facility] T ([facility]) Body weight 59.422 kg 59.422 kg [facility] ([facility]) Systolic blood pressure 120 mm[Hg] 120 mm[Hg] [facility] ([facility]) Body mass index (BMI) [Ratio] 21.1 kg/m2 21.1 k g/m2 [facility] ([facility]) Body surface area Derived from formula 1.67 m2 1.67 m2 [facility] ([facility])
--- NOTE | 2021-08-02 08:14 | REP ---
INDICATION: R sided CROWE, blurred vision R eye COMPARISON: None. TECHNIQUE: Axial noncontrast images from the skull base to the vertex with coronal reformations. This CT examination was performed using the following dose reduction techniques: Automated exposure control, adjustment of mA and/or kv according to the patient's size, and use of iterative reconstruction technique. FINDINGS: The ventricles, sulci, and cisterns are normal in position and appearance. Renner-white differentiation is maintained. No acute intracranial hemorrhage, mass/mass effect, pathology or trauma/injury. No evidence for acute infarction. No extra-axial fluid collection. Calvarium is intact. Paranasal sinuses and mastoid air cells are clear. IMPRESSION: Normal noncontrast head CT. No evidence for acute intracranial pathology or trauma/injury. <Electronically signed by Jose Lira > 08/02/21 [id number]
[2021-08-02 08:21] LABS: ERYTHROCYTE SEDIMENTATION RATE 8 mm/hr (0-20)
[2021-08-02] MEDS ORDERED: dexameTHASONE 20MG/5ML VIAL (J1100 PER 1MG) IV ONE (08:30)
[2021-08-02] MEDS ORDERED: REGL10TA6 PO (09:46)
[2021-08-02 10:08] VITALS: BP 107/59
== END 2021-08-02 10:28 | disposition home or self-care (01) ==
LOC: M ED 21:15
DX: R51.9 Headache, unspecified (principal); R11.0 Nausea; Z88.2 Allergy status to sulfonamides; Z91.040 Latex allergy status; Z79.899 Other long term (current) drug therapy
CPT/HCPCS: 70450; 80047; 83735; 84702; 85025; 85652; 96361; 96374; 96375; 99284; J1100; J1885; J2765

== ENCOUNTER → 2022-04-25 | Outpatient (REF) | payer OTHER ==
[~2022-04-25] MED LIST changes: +REGL10TA6 PO; +RIZA10TA58; +TOPI50TA9; +TRI-TAB
[2022-04-25 12:28] LABS: RHEUMATOID FACTOR QUANT < 10.0 IU/ML (<15.0)
[2022-04-25 13:13] LABS: TOTAL 25(OH) VITAMIN D 30.1 NG/ML (30.0-100.0)
== END ==
LOC: M WUC 09:44
PROVIDERS: ATTEND Psychiatry & Neurology Neurology
DX: R20.2 Paresthesia of skin (principal); I73.00 Raynaud's syndrome without gangrene

== ENCOUNTER → 2022-09-12 | Outpatient (CLI) | payer OTHER ==
[2022-09-12 11:35] LABS: COMPLEMENT C4 17.8 MG/DL (12-36); RHEUMATOID FACTOR QUANT < 3.5 IU/ML (<14)
[2022-09-16 15:07] LABS: ANTI DS-DNA AB Negative (Negative)
[2022-09-20 12:07] LABS: ANTI SMITH(Sm) AB <20 Units (<20); ANTI-HISTONE ANTIBODIES 0.5 Units (0.0-0.9); ANTI-U1 RNP AB <20 Units (<20); ANTINUCLEAR ANTIBODIES DIRECT Negative (Negative); COMPLEMENT C5 12 mg/dL (7-20); SJOGREN'S ANTI SS-A <0.2 AI (0.0-0.9); SJOGREN'S ANTI SS-B <0.2 AI (0.0-0.9)
== END ==
LOC: M WUC 09:08
PROVIDERS: ATTEND Psychiatry & Neurology Neurology
DX: I73.00 Raynaud's syndrome without gangrene (principal); R21 Rash and other nonspecific skin eruption